=== PATIENT | female | born 1955 | race Caucasian/White ===

== ENCOUNTER 2017-08-13 09:59 | Inpatient (IN) ==
[~2017-08-13 09:59] MED LIST: *HR* Propofol 500 MG/50 ML BOTTLE IVC ONE
--- NOTE | 2017-08-13 11:23 | Anesthesia Evaluation PreOp ---
Date of Encounter: 08/13/17 Time of Encounter: 11:20 - Past History Planned Operation: colonoscopy Cardiac History: HTN, Hyperlipidemia Pulmonary History: Denies Any Significant HX DIETITIAN HELPER History: Other (myofascial pain disorder) Other Medical History: Diabetes Type II (pre diabetic on no meds) Alcohol Use: rarely - Meds/Allergy Pre-op Review Medications Reviewed: Yes Allergies Reviewed: Yes Beta Blockers on Current Med List: No Anesthesia Exam - HEENT Pupil (Motor): Pupils equal Mallampati: II Denture Type: Upper: Complete Oral Opening: Greater than 3 - Cardiac Rhythm: Regular Murmur: None - Pulmonary Breath Sounds: bilateral Clear Respiratory Effort: Symmetrical Anesthesia Assess/Plan ASA Score: 2 Modified Trang Scale for Level of Consciousness: Cooperative, oriented, and tranquil Anesthetic Plan: MAC Monitoring Plan: Standard Monitors Recovery Plan: Other (Discussed GA, risks. Agreed to proceed.)
[2017-08-13] MEDS ORDERED: 0.9 % Sodium Chloride 1,000 ML IVC SCH (11:45)
[2017-08-13] MEDS ORDERED: Simethicone 40 MG/0.6 ML MLS IR ONE (11:56)
--- NOTE | 2017-08-13 11:56 | History & Physical Report ---
Date of Encounter: 08/13/17 Time of Encounter: 11:55 24 Hour HP Update - Instructions Instructions: If the History and Physical is less than 30 days old and was completed prior to A.M. admission and or procedure and has NOT been updated on calendar day of procedure please complete this update prior to performing procedure. - Update Patient reports changes in Medical Condition: No Changes in examination, assessment, or condition: No Changes in Medication: No Surgery Remains Indicated: Yes Consent for Planned Operative Procedure(s) Verified: Yes - Pre-Operative Checklist Prophylactic Antibiotic Ordered: No Home Medications Include Beta Rehan: No Is VTE Prophylaxis Indicated?: NO
[2017-08-13] MEDS ORDERED: *HR* Metoprolol 5 MG/5 ML VIAL IVP PRN (14:37)
[2017-08-13] MEDS ORDERED: Acetaminophen 325 MG TABLET PO PRN (14:39)
--- NOTE | 2017-08-13 14:45 | General Surg History&Physical ---
<Evelyn Post - Last Filed: 08/13/17 14:42> Date of Encounter: 08/13/17 Time of Encounter: 14:30 Assessment and Plan (1) Rectal mass Current Visit: Yes Status: Acute The assessment and plan as outlined above was discussed with the patient and/or family members who expressed understanding and agreement. All questions were answered. NPO IV fluids- 75ml/hour CT scan of abdomen/pelvis with PO/IV/Rectal contrast today Check labs- CBC,CMP,PT/INR,CEA Supportive care and pain control GI prophylaxis (2) Hypertension Current Visit: Yes Status: Chronic The assessment and plan as outlined above was discussed with the patient and/or family members who expressed understanding and agreement. All questions were answered. The patient is currently normotensive Metoprolol 5 mg IV when necessary for hypertension Qualifiers: Hypertension type: essential hypertension Qualified Code(s): I10 - Essential (primary) hypertension (3) DVT prophylaxis Current Visit: Yes Status: Acute The assessment and plan as outlined above was discussed with the patient and/or family members who expressed understanding and agreement. All questions were answered. EPCDs to bilateral lower extremities for DVT prophylaxis Ambulatory hallways 3 times a day with assistance History of Present Illness Chief complaint: Rectal mass HPI: Ms. Saavedra is a 61 year old female who has been seen and evaluated by Dr. Whitmore for rectal bleeding. She reports rectal bleeding for greater than 30 days and reports severe pain with bowel movements. She reports that the pain does last for about 20 minutes after having a bowel movement. She reported that her stool has been thin and soft. She does admit to abdominal discomfort which she describes as an abdominal cramping/spasm with associated bloating. She does admit to a 22 pound weight loss since August but states that she has been using weight watchers for intentional weight loss. The patient is status post a colonoscopy today with Dr. Whitmore. The colonoscopy shows a near obstructing rectal mass. The patient has been direct admitted to the hospital for further workup and treatment. Past Med Surg Social Fam HX - Past Medical History Source: patient, old records reviewed Medical history: arthritis, hyperlipidemia, hypertension, other (Impaired fasting glucose, obesity) Psychiatric history: no psych history - Past Surgical History Surgical History: cholecystectomy, other (Tubal ligation, D&C) - Social History Smoking Status: Former smoker Alcohol use: rarely Drug use: none Current living situation: Home - Independent Activity Level: Independent ambulation - Family History Father Living Status: Age at : 86 Cause of : Colon cancer Hx Family Cancer: Yes (Colon Cancer) Mother Living Status: Age at : 63 Cause of : Breast cancer Hx Family Cancer: Yes (Breast Cancer) Medications and Allergies No Known Home Drugs 08/13/17 [History] 3 Allergy/AdvReac Type Severity Reaction Status Date / Time acetaminophen AdvReac Chest Pain Verified 08/13/17 11:55 [From Tylenol-Codeine #3] codeine AdvReac Chest Pain Verified 08/13/17 11:55 Review of Systems All systems PM: reviewed and no additional remarkable complaints except as stated (in the HPI) All systems PM: A 10-system review of systems was performed and is negative for pertinent findings except as documented above in the HPI. General Surgery Exam Initial Vital Signs Temp Pulse Resp BP Pulse Ox 98.3 F 75 18 135/88 98 08/13/17 11:26 08/13/17 11:26 08/13/17 11:26 08/13/17 11:26 08/13/17 11:26 Results - Labs All other labs normal. - Attending Attestation For this encounter, I have reviewed the SENIOR PRODUCTION PLANNER or PA documentation, treatment plan, and medical decision making; and I have had face to face time with this patient. <Hemalatha Whitmore - Last Filed: 08/14/17 15:10> Date of Encounter: 08/13/17 Assessment and Plan (1) Rectal mass Current Visit: Yes Status: Acute The assessment and plan as outlined above was discussed with the patient and/or family members who expressed understanding and agreement. All questions were answered. discussed with patient and her family results of colonoscopy, she has a nearly obstructing rectal mass CT scan done, results pending await results, likely need colostomy and mucus fistula (2) Hypertension Current Visit: Yes Status: Chronic The assessment and plan as outlined above was discussed with the patient and/or family members who expressed understanding and agreement. All questions were answered. Qualifiers: Hypertension type: essential hypertension Qualified Code(s): I10 - Essential (primary) hypertension (3) DVT prophylaxis Current Visit: Yes Status: Acute The assessment and plan as outlined above was discussed with the patient and/or family members who expressed understanding and agreement. All questions were answered. History of Present Illness HPI: Ms. Saavedra is a 61 year old female Review of Systems All systems PM: reviewed and no additional remarkable complaints except as stated All systems PM: A 10-system review of systems was performed and is negative for pertinent findings except as documented above in the HPI. General Surgery Exam Initial Vital Signs Temp Pulse Resp BP Pulse Ox 98.3 F 75 18 135/88 98 08/13/17 11:26 08/13/17 11:26 08/13/17 11:26 08/13/17 11:26 08/13/17 11:26 - General physical appearance well nourished, no distress - Eyes PERRL, normal ocular movement - ENT normal mucosa, normocephalic - Neck trachea midline - Respiratory normal expansion, normal respiratory effort, clear to auscultation - Cardiovascular Cardiovascular exam: Present: RRR - Abdomen Abdomen general surgery: Present: bowel sounds present, soft, tender Abdominal Tenderness: Present: LLQ - Integumentary Integumentary general surgery: Present: warm and dry - Neurologic Present: CN 2-12 grossly intact - Musculoskeletal Present: normal posture - Psychiatric Psychiatric general surgery: Present: A&Ox3, speech is normal Results - Labs 08/13/17 15:04 08/13/17 15:04 Abnormal lab results PT 12.4 Seconds (9.4-12.1) H 08/13/17 15:04 Chloride 110 mEq/L (98-107) H 08/13/17 15:04 Creatinine 0.59 mg/dL (0.60-1.20) L 08/13/17 15:04 Carcinoembryonic Ag 76.5 ng/mL (Less than 5.0) H 08/13/17 15:04 Diabetes panel 08/13/17 Range/Units 15:04 Sodium 139 (136-145) mEq/L Potassium 3.7 (3.5-5.1) mEq/L Chloride 110 H (98-107) mEq/L Carbon Dioxide 24 (23-29) mEq/L BUN 8 (8-23) mg/dL Creatinine 0.59 L (0.60-1.20) mg/dL Glucose 100 (70-105) mg/dL Calcium 9.2 (8.6-10.3) mg/dL AST 14 (13-39) Units/L ALT 11 (7-52) Units/L Alkaline Phosphatase 60 (34-104) Units/L Albumin 3.8 (3.5-5.7) g/dL Calcium panel 08/13/17 Range/Units 15:04 Calcium 9.2 (8.6-10.3) mg/dL Albumin 3.8 (3.5-5.7) g/dL Pituitary panel 08/13/17 Range/Units 15:04 Sodium 139 (136-145) mEq/L Potassium 3.7 (3.5-5.1) mEq/L Chloride 110 H (98-107) mEq/L Carbon Dioxide 24 (23-29) mEq/L BUN 8 (8-23) mg/dL Creatinine 0.59 L (0.60-1.20) mg/dL Glucose 100 (70-105) mg/dL Calcium 9.2 (8.6-10.3) mg/dL Adrenal panel 08/13/17 Range/Units 15:04 Sodium 139 (136-145) mEq/L Potassium 3.7 (3.5-5.1) mEq/L Chloride 110 H (98-107) mEq/L Carbon Dioxide 24 (23-29) mEq/L BUN 8 (8-23) mg/dL Creatinine 0.59 L (0.60-1.20) mg/dL Glucose 100 (70-105) mg/dL Calcium 9.2 (8.6-10.3) mg/dL Total Bilirubin 0.3 (0.3-1.0) mg/dL AST 14 (13-39) Units/L ALT 11 (7-52) Units/L Alkaline Phosphatase 60 (34-104) Units/L Albumin 3.8 (3.5-5.7) g/dL All other labs normal. - Imaging CT scan - abdomen: image reviewed CT scan - pelvis: image reviewed - Attending Attestation I have personally performed a face to face evaluation on this patient. I have reviewed and agree with the care plan. History and Exam by me shows:
[2017-08-13 15:19] LABS: Basophils # 0.1 K/mcL (0.0-0.2); Basophils % 0.7 %; Eosinophils # 0.3 K/mcL (0.0-0.6); Eosinophils % 3.3 %; Hematocrit 42.6 % (35.3-44.9); Hemoglobin 13.9 g/dL (11.5-15.4); Immature Granulocytes % 0.2 % (0-4); Lymphocytes # 2.5 K/mcL (0.6-4.6); Lymphocytes % 27.6 %; Mean Corpuscular HGB Conc 32.6 g/dL (31.6-35.5); Mean Corpuscular Hemoglobin 29.8 pg (28.0-33.3); Mean Corpuscular Volume 91.4 fL (83.0-100.0); Mean Platelet Volume 12.2 fL (9.4-12.4); Monocytes # 0.6 K/mcL (0.0-1.3); Monocytes % 6.5 %; Neutrophils # 5.5 K/mcL (1.6-8.9); Platelet Count 176 K/mcL (140-400); Red Blood Count 4.66 M/mcL (3.82-4.97); Red Cell Distribution Width 12.6 % (11.5-14.5); Segmented Neutrophils % 61.7 %
[2017-08-13 15:24] LABS: INR 1.1; Prothrombin Time 12.4 Seconds (9.4-12.1)
[2017-08-13 15:49] LABS: Carcinoembryonic Antigen 76.5 ng/mL (Less than 5.0)
[2017-08-13 15:52] LABS: Alanine Aminotransferase 11 Units/L (7-52); Albumin 3.8 g/dL (3.5-5.7); Albumin/Globulin Ratio 1.2 (1.1-2.2); Alkaline Phosphatase 60 Units/L (34-104); Aspartate Amino Transferase 14 Units/L (13-39); BUN/Creatinine Ratio 14 (6-26); Bilirubin,Total 0.3 mg/dL (0.3-1.0); Blood Urea Nitrogen 8 mg/dL (8-23); Calcium 9.2 mg/dL (8.6-10.3); Carbon Dioxide 24 mEq/L (23-29); Chloride 110 mEq/L (98-107); Globulin 3.3 g/dL (2.4-3.5); Glucose 100 mg/dL (70-105); Osmolality,Calculated 286 (280-300); Potassium 3.7 mEq/L (3.5-5.1); Sodium 139 mEq/L (136-145); Total Protein 7.1 g/dL (6.4-8.9); eGFR For African Americans > 60 (> 60); eGFR For Non-African Americans > 60 (> 60)
--- NOTE | 2017-08-13 16:50 | Anesthesia Evaluation Post Op ---
Date of Encounter: 08/13/17 Time of Encounter: 16:00 - Vital Signs Vital Signs: Selected Entries 08/13/17 15:50 Temperature 97.6 F Pulse Rate 65 Respiratory Rate 16 Blood Pressure 147/85 O2 Sat by Pulse Oximetry 97 - Lungs Lungs: Clear Ascult./Percussion - Airway Airway: Non-obstructed - Cardiovascular Regular Rate - Mental Status Mental Status: Alert & Oriented, Answers Appropriately - Nausea Vomiting Nausea Vomiting: Not Present - Hydration Hydration: Tolerates oral liquids - Discharge PostOp Status: Discharge Patient to home
[2017-08-13] MEDS: Ketorolac 15 MG/ML VIAL IVP PRN (18:21)
[2017-08-13] MEDS: Pantoprazole 40 MG VIAL IVP SCH (18:21)
[2017-08-13] MEDS: 0.9 % Sodium Chloride 1,000 ML IVC SCH (19:45)
[2017-08-14] MEDS: Ketorolac 15 MG/ML VIAL IVP PRN ×2 (03:13→16:55)
[2017-08-14] MEDS: 0.9 % Sodium Chloride 1,000 ML IVC SCH (09:33)
[2017-08-14] MEDS: Pantoprazole 40 MG VIAL IVP SCH (09:33)
--- NOTE | 2017-08-14 10:41 | General Surgery Progress Note ---
<Evelyn Post - Last Filed: 08/14/17 11:28> Date of Encounter: 08/14/17 Time of Encounter: 10:30 - Assessment and Plan (1) Rectal mass Current Visit: Yes Status: Acute Clear liquid diet NPO after midnight tonight IV fluids- 75ml/hour CT scan of abdomen/pelvis with PO/IV/Rectal contrast complete CT scan of the chest complete today CEA- 76.5 Supportive care and pain control GI prophylaxis Plan to proceed to the operating room with Dr. Whitmore in the next 24 hours for a diverting ostomy and mucous fistula (2) Hypertension Current Visit: Yes Status: Chronic Blood pressure stable Metoprolol prn for SBP greater than 150 Continue to monitor and adjust regimen as necessary Qualifiers: Hypertension type: essential hypertension Qualified Code(s): I10 - Essential (primary) hypertension (3) DVT prophylaxis Current Visit: Yes Status: Acute EPCDs to bilateral lower extremities for DVT prophylaxis Ambulate hallways TID with assistance Subjective Patient reports: no new complaints, voiding w/o difficulty, afebrile Objective Vital Signs - Last 8 Hours Temp Pulse Resp BP Pulse Ox 08/14/17 07:27 98.2 F 70 15 138/90 98 08/14/17 03:38 98.2 F 65 15 125/77 97 Intake and Output 08/13/17 08/14/17 08/14/17 23:59 07:59 15:59 Intake Total 480 / 480 200 / 200 1000 / 1000 Output Total 700 / 700 600 / 600 Balance -220 / -220 -400 / -400 1000 / 1000 Intake: IV Fluids 1000 / 1000 0.9 % Sodium Chloride 1,000 ML 1000 / 1000 @ 75 mls/hr IVC .[id number] JULIETTE Rx #:[id number] Oral 480 / 480 200 / 200 0 / 0 Output: Urine 700 / 700 600 / 600 Other: Meal NPO NPO Percent of Meal Consumed 0% # Voids 2 0 Weight 80.5 kg Patient Weight 08/14/17 23:59 Weight 80.5 kg - General physical appearance well developed, well nourished, no distress, no pain - Eyes normal ocular movement - ENT normal mucosa, atraumatic, normocephalic - Neck Neck exam: trachea midline - Respiratory normal respiratory effort, clear to auscultation - Cardiovascular Cardiovascular exam: Present: RRR - Abdomen Abdomen: Present: bowel sounds present, soft, non tender - Neurologic CN 2-12 grossly intact - Musculoskeletal normal gait, normal posture - Psychiatric oriented to time, oriented to person, oriented to place, speech is normal, memory intact - Labs 08/13/17 15:04 08/13/17 15:04 Diabetes panel 08/13/17 Range/Units 15:04 Sodium 139 (136-145) mEq/L Potassium 3.7 (3.5-5.1) mEq/L Chloride 110 H (98-107) mEq/L Carbon Dioxide 24 (23-29) mEq/L BUN 8 (8-23) mg/dL Creatinine 0.59 L (0.60-1.20) mg/dL Glucose 100 (70-105) mg/dL Calcium 9.2 (8.6-10.3) mg/dL AST 14 (13-39) Units/L ALT 11 (7-52) Units/L Alkaline Phosphatase 60 (34-104) Units/L Albumin 3.8 (3.5-5.7) g/dL Calcium panel 08/13/17 Range/Units 15:04 Calcium 9.2 (8.6-10.3) mg/dL Albumin 3.8 (3.5-5.7) g/dL Pituitary panel 08/13/17 Range/Units 15:04 Sodium 139 (136-145) mEq/L Potassium 3.7 (3.5-5.1) mEq/L Chloride 110 H (98-107) mEq/L Carbon Dioxide 24 (23-29) mEq/L BUN 8 (8-23) mg/dL Creatinine 0.59 L (0.60-1.20) mg/dL Glucose 100 (70-105) mg/dL Calcium 9.2 (8.6-10.3) mg/dL Adrenal panel 08/13/17 Range/Units 15:04 Sodium 139 (136-145) mEq/L Potassium 3.7 (3.5-5.1) mEq/L Chloride 110 H (98-107) mEq/L Carbon Dioxide 24 (23-29) mEq/L BUN 8 (8-23) mg/dL Creatinine 0.59 L (0.60-1.20) mg/dL Glucose 100 (70-105) mg/dL Calcium 9.2 (8.6-10.3) mg/dL Total Bilirubin 0.3 (0.3-1.0) mg/dL AST 14 (13-39) Units/L ALT 11 (7-52) Units/L Alkaline Phosphatase 60 (34-104) Units/L Albumin 3.8 (3.5-5.7) g/dL - Attending Attestation For this encounter, I have reviewed the ENGINEERING ADMINISTRATOR or PA documentation, treatment plan, and medical decision making; and I have had face to face time with this patient. <Hemalatha Whitmore - Last Filed: 08/14/17 15:12> Date of Encounter: 08/14/17 - Assessment and Plan (1) Rectal mass Current Visit: Yes Status: Acute CT results from chest, abd/pelvis discussed with patient and her family will plan laparoscopic colostomy with mucus fistula in the next 24 hrs clears today npo at midnight gi/dvt prophylaxis (2) Hypertension Current Visit: Yes Status: Chronic Qualifiers: Hypertension type: essential hypertension Qualified Code(s): I10 - Essential (primary) hypertension (3) DVT prophylaxis Current Visit: Yes Status: Acute Subjective Patient reports: tolerating liquids well, voiding w/o difficulty, flatus, no bowel movement, afebrile Objective Vital Signs - Last 8 Hours Temp Pulse Resp BP Pulse Ox 08/14/17 10:34 97.8 F 63 16 144/67 97 08/14/17 07:27 98.2 F 70 15 138/90 98 Intake and Output 08/13/17 08/14/17 08/14/17 23:59 07:59 15:59 Intake Total 480 / 480 200 / 200 1000 / 1000 Output Total 700 / 700 600 / 600 300 / 300 Balance -220 / -220 -400 / -400 700 / 700 Intake: IV Fluids 1000 / 1000 0.9 % Sodium Chloride 1,000 ML 1000 / 1000 @ 75 mls/hr IVC .[id number] JULIETTE Rx #:[id number] Oral 480 / 480 200 / 200 0 / 0 Output: Urine 700 / 700 600 / 600 300 / 300 Other: Meal NPO NPO Percent of Meal Consumed 0% # Voids 2 0 Weight 80.5 kg Patient Weight 08/14/17 23:59 Weight 80.5 kg - General physical appearance well developed, well nourished, no distress, no pain - Eyes normal ocular movement - ENT normal mucosa, normocephalic - Respiratory normal respiratory effort, clear to auscultation - Cardiovascular Cardiovascular exam: Present: RRR - Abdomen Abdomen: Present: bowel sounds present, soft, non tender. Absent: distended, guarding, rebound - Integumentary no growths - Neurologic CN 2-12 grossly intact - Musculoskeletal normal gait, normal posture - Psychiatric oriented to time, oriented to person, oriented to place, speech is normal, memory intact - Labs 08/13/17 15:04 08/13/17 15:04 Diabetes panel 08/13/17 Range/Units 15:04 Sodium 139 (136-145) mEq/L Potassium 3.7 (3.5-5.1) mEq/L Chloride 110 H (98-107) mEq/L Carbon Dioxide 24 (23-29) mEq/L BUN 8 (8-23) mg/dL Creatinine 0.59 L (0.60-1.20) mg/dL Glucose 100 (70-105) mg/dL Calcium 9.2 (8.6-10.3) mg/dL AST 14 (13-39) Units/L ALT 11 (7-52) Units/L Alkaline Phosphatase 60 (34-104) Units/L Albumin 3.8 (3.5-5.7) g/dL Calcium panel 08/13/17 Range/Units 15:04 Calcium 9.2 (8.6-10.3) mg/dL Albumin 3.8 (3.5-5.7) g/dL Pituitary panel 08/13/17 Range/Units 15:04 Sodium 139 (136-145) mEq/L Potassium 3.7 (3.5-5.1) mEq/L Chloride 110 H (98-107) mEq/L Carbon Dioxide 24 (23-29) mEq/L BUN 8 (8-23) mg/dL Creatinine 0.59 L (0.60-1.20) mg/dL Glucose 100 (70-105) mg/dL Calcium 9.2 (8.6-10.3) mg/dL Adrenal panel 08/13/17 Range/Units 15:04 Sodium 139 (136-145) mEq/L Potassium 3.7 (3.5-5.1) mEq/L Chloride 110 H (98-107) mEq/L Carbon Dioxide 24 (23-29) mEq/L BUN 8 (8-23) mg/dL Creatinine 0.59 L (0.60-1.20) mg/dL Glucose 100 (70-105) mg/dL Calcium 9.2 (8.6-10.3) mg/dL Total Bilirubin 0.3 (0.3-1.0) mg/dL AST 14 (13-39) Units/L ALT 11 (7-52) Units/L Alkaline Phosphatase 60 (34-104) Units/L Albumin 3.8 (3.5-5.7) g/dL - Attending Attestation I have personally performed a face to face evaluation on this patient. I have reviewed and agree with the care plan. History and Exam by me shows:
--- NOTE | 2017-08-14 17:47 | Anesthesia Evaluation PreOp ---
Date of Encounter: 08/14/17 Time of Encounter: 18:00 - Past History Planned Operation: Robotic Assisted Lap Colostomy Cardiac History: HTN, Hyperlipidemia Pulmonary History: Denies Any Significant HX SAND MILL OPERATOR FACING SAND History: Other (Myofascial Pain) Other Medical History: Diabetes Type II (pre-diabetic no meds) Anesthesia History: No Prior Anesthetic Complications : No Test: Negative Alcohol Use: rarely Drug use: none Medications and Allergies No Known Home Drugs 08/13/17 [History] 3 Allergy/AdvReac Type Severity Reaction Status Date / Time acetaminophen AdvReac Chest Pain Verified 08/13/17 11:55 [From Tylenol-Codeine #3] codeine AdvReac Chest Pain Verified 08/13/17 11:55 - Meds/Allergy Pre-op Review Medications Reviewed: Yes Allergies Reviewed: Yes Beta Blockers on Current Med List: No Anesthesia Results - Labs 08/13/17 15:04 08/13/17 15:04 Laboratory Tests 08/13/17 08/13/17 15:04 15:04 Hgb 13.9 Hct 42.6 Plt Count 176 Sodium 139 Potassium 3.7 BUN 8 Creatinine 0.59 L Anesthesia Exam Vital Signs/O2 Sat/Glucose, Most Current Temp Pulse Resp BP Pulse Ox 08/14/17 16:13 98 F 65 15 140/62 97 Height: 5'5 Weight: 177 lbs NPO (# of Hours): MN Pain Scale: 0 - HEENT Pupil (Motor): Pupils equal, EOMI Mallampati: II Teeth: Normal Oral Opening: Greater than 3 - SAND MILL OPERATOR FACING SAND LOC: Oriented SAND MILL OPERATOR FACING SAND Motor: Normal RUE, Normal LUE, Normal RLE, Normal LLE, Normal Face SAND MILL OPERATOR FACING SAND Sensory: Normal: RUE, LUE, RLE, LLE, Face - Cardiac Rhythm: Regular Murmur: None JVD: No Carotid Bruit: No - Pulmonary Breath Sounds: bilateral Clear Respiratory Effort: Symmetrical Anesthesia Assess/Plan ASA Score: 2 Modified York Scale for Level of Consciousness: Cooperative, oriented, and tranquil Anesthetic Plan: General Monitoring Plan: Standard Monitors Recovery Plan: PACU (Discussed GA, agrees to proceed)
--- NOTE | 2017-08-14 23:46 | Emergency Department Note ---
Disposition Disposition: Home, Self-Care Condition: Good General Adult HPI - General Chief complaint: ED GI Bleed Limitations: age Nursing Notes Reviewed: Yes Vital Signs Reviewed: Yes - History of Present Illness HPI Narrative: This patient was directly admitted to Dr. Whitmore. I have never seen or evaluated this patient Pain Scale: 0 - Related Data Previous Rx's Medication Instructions Recorded Dicyclomine [Bentyl] 20 mg PO Q6H PRN #30 capsule 08/19/17 Ibuprofen 800 mg PO Q8H PRN #30 tablet 08/19/17 OxyCODONE Immed Rel [Roxicodone 5 5 mg PO Q6HR PRN 7 Days #28 tablet 08/19/17 MG] Omeprazole [PriLOSEC] 20 mg PO DAILY #30 cap 08/20/17 Ondansetron HCl [Zofran] 4 mg PO Q4H PRN #30 tablet 08/20/17 Prochlorperazine Maleate 10 mg PO Q6H PRN #30 tablet 08/20/17 [Compazine] Lidocaine/Prilocaine [Emla] 1 appl TP AD #30 gm 08/23/17 Loperamide [Imodium] 2 mg PO AD PRN #30 capsule 08/23/17 Magic Mouthwash 5 ml PO Q4H PRN #240 ml 08/23/17 Allergies Allergy/AdvReac Type Severity Reaction Status Date / Time acetaminophen AdvReac Chest Pain Verified 08/30/17 13:40 [From Tylenol-Codeine #3] codeine AdvReac Chest Pain Verified 08/30/17 13:40 Past Medical History - Past Medical History Medical history: Reports: arthritis, hyperlipidemia, hypertension, other ( Impaired fasting glucose, obesity) Surgical history: Reports: cholecystectomy, other (Tubal ligation, D&C) Psychiatric history: Reports: no psych history - Social History Smoking Status: Former smoker Alcohol use: Reports: rarely Drug use: Reports: none Course Vital Signs Temperature 98.3 F 08/13/17 11:26 Pulse Rate 75 08/13/17 11:26 Respiratory Rate 18 08/13/17 11:26 Blood Pressure 135/88 08/13/17 11:26 O2 Sat by Pulse Oximetry 98 08/13/17 11:26 Temperature 98.3 F 08/14/17 19:00 Pulse Rate 87 02/14/18 19:00 Respiratory Rate 14 08/14/17 19:00 Blood Pressure 132/73 08/14/17 19:00 O2 Sat by Pulse Oximetry 96 08/14/17 19:00 Medical Decision Making - MDM Narrative Medical decision making narrative: I never saw this patient - Lab Data Result diagrams: 08/19/17 07:41 08/19/17 07:41 Lab Results 08/13/17 08/13/17 08/13/17 Range/Units 15:04 15:04 15:04 WBC 8.9 (4.3-11.1) K/mcL RBC 4.66 (3.82-4.97) M/mcL Hgb 13.9 (11.5-15.4) g/dL Hct 42.6 (35.3-44.9) % MCV 91.4 (83.0-100.0) fL MCH 29.8 (28.0-33.3) pg MCHC 32.6 (31.6-35.5) g/dL RDW 12.6 (11.5-14.5) % Plt Count 176 (140-400) K/mcL MPV 12.2 (9.4-12.4) fL Immature Gran % 0.2 (0-4) % Seg Neutrophils % 61.7 % Lymphocytes % 27.6 % Monocytes % 6.5 % Eosinophils % 3.3 % Basophils % 0.7 % Neutrophils # 5.5 (1.6-8.9) K/mcL Lymphocytes # 2.5 (0.6-4.6) K/mcL Monocytes # 0.6 (0.0-1.3) K/mcL Eosinophils # 0.3 (0.0-0.6) K/mcL Basophils # 0.1 (0.0-0.2) K/mcL PT 12.4 H (9.4-12.1) Seconds INR 1.1 Sodium 139 (136-145) mEq/L Potassium 3.7 (3.5-5.1) mEq/L Chloride 110 H (98-107) mEq/L Carbon Dioxide 24 (23-29) mEq/L BUN 8 (8-23) mg/dL Creatinine 0.59 L (0.60-1.20) mg/dL Est GFR ( Amer) > 60 (> 60) Est GFR (Non-Af Amer) > 60 (> 60) BUN/Creatinine Ratio 14 (6-26) Glucose 100 (70-105) mg/dL Calculated Osmolality 286 (280-300) Calcium 9.2 (8.6-10.3) mg/dL Total Bilirubin 0.3 (0.3-1.0) mg/dL AST 14 (13-39) Units/L ALT 11 (7-52) Units/L Alkaline Phosphatase 60 (34-104) Units/L Serum Total Protein 7.1 (6.4-8.9) g/dL Albumin 3.8 (3.5-5.7) g/dL Globulin 3.3 (2.4-3.5) g/dL Albumin/Globulin Ratio 1.2 (1.1-2.2) Carcinoembryonic Ag 76.5 H (Less than 5.0) ng/mL Attestation Statement - Attestation Attestation: I do not know why this ER physician has created this document and assigned it to me. Patient was a direct admit and never was to go through the ER.
[2017-08-15] MEDS ORDERED: *HR* Propofol 200 MG/20 ML VIAL IVP ONE (07:12)
[2017-08-15] MEDS ORDERED: *HR* FentaNYL (PF) 100 MCG/2 ML VIAL ONE ×2 (07:12→08:30)
[2017-08-15] MEDS ORDERED: *HR* Succinylcholine 200 MG/10 ML VIAL IVP ONE (07:15)
[2017-08-15] MEDS ORDERED: *HR* Rocuronium Bromide 50 MG/5 ML VIAL ONE (07:15)
[2017-08-15] MEDS ORDERED: Lidocaine -MPF 2% 2 ML VIAL ONE (07:16)
[2017-08-15] MEDS ORDERED: *HR* HYDROmorphone 2 MG TABLET PO PRN (07:35)
[2017-08-15] MEDS ORDERED: *HR* OxyCODONE Immed Rel 5 MG TABLET PO PRN (07:35)
[2017-08-15] MEDS ORDERED: *HR* HYDROcodone/Acet 7.5/325 mg TABLET PO PRN (07:35)
[2017-08-15] MEDS ORDERED: Acetaminophen IV 1,000 MG/100 ML INFUS..BTL ONE (07:38)
[2017-08-15] MEDS ORDERED: Ketamine *HR* 500 MG/10 ML MDV ONE (07:40)
[2017-08-15] MEDS ORDERED: *HR* Magnesium Sulfate 1 GM/2 ML VIAL ONE (08:12)
[2017-08-15] MEDS ORDERED: Dexamethasone 4 MG/ML VIAL ONE (08:21)
[2017-08-15] MEDS ORDERED: Ondansetron 4 MG/2 ML VIAL ONE (08:21)
[2017-08-15] MEDS ORDERED: *HR* Midazolam HCl 2 MG/2 ML VIAL ONE (08:23)
[2017-08-15] MEDS ORDERED: Ringers Solution, Lactated 1,000 ML ONE (10:10)
--- NOTE | 2017-08-15 10:12 | Operative Note ---
Date of procedure: 08/15/17 Pre-op diagnosis: Near obstructing rectal mass Post-op diagnosis: same Procedure: Laparoscopic sigmoid colostomy with mucus fistula Complications: none immediate Anesthesia: GETA, local Local Anesthetics: 0.5% Sensorcaine HCL SubQ (cc) (30) Surgeon: Hemalatha Whitmore Was there an occupational therapist assistant present: Yes Care Coordination Manager: Caty Light Estimated blood loss (cc): 10 Specimen: none Condition: stable Disposition: PACU Procedure in Detail: Patient was brought to the operating suite and placed on the operating table. Sign-in was performed and everyone was in agreement. Anesthesia was induced and patient was endotracheally intubated by anesthesia without incident. Bilateral arms were tucked. Her abdomen was prepped and draped in the usual sterile fashion. Timeout was performed again everyone was in agreement. A stab incision in the left upper quadrant was made with 11 blade. A Veress needle was placed through this and water drop test confirmed placement and the abdomen was insufflated. We entered the abdomen a 5 mm 0 degree laparoscope and a 5 mm XL trocar in the right upper quadrant. The area under entry was visualized and was normal. There was no bowel injury and there was no bleeding. Another 5 mm port was placed in the right lower quadrant under direct visualization after first incising the skin with 11 blade. A third 5 mm port was placed in the right abdominal wall several centimeters lateral to the umbilicus under direct visualization after first incising the skin with 11 blade. The patient was placed in right side down Trendelenburg position. Small bowel was manipulated right abdomen. There were omental adhesions to the anterior abdominal wall from the patient's previous open cholecystectomy which were taken down with gentle blunt dissection and heated scissors. The sigmoid colon and the left colon located. Using laparoscopic scissors and gentle blunt dissection the sigmoid was taken down off the left abdominal wall white line of Toldt. We then turned our attention to creating the ostomy opening. A circular incision through the skin and the subcutaneous tissues with the patient's previously marked colostomy site was made with 15 blade. The skin and subcutaneous fat was excised with a Bovie. Dissected through the subcutaneous fat to the rectus anterior fascia which was opened longitudinally with the Bovie. The rectus muscle was split with a Andressa. The posterior rectus fascia was opened with the Bovie. The ostomy opening accommodated 2 fingerbreadths. The sigmoid colon was then grasped with Dexter through the ostomy opening. There was not enough length of the colon to reach appropriately. The sigmoid was returned to the abdominal cavity. An extra small Marcial wound retractor was placed through the colostomy opening turned several times to create a stoma 4 x 4 wet gauze was placed around the tract to hold it in place. The abdomen was insufflated again. A fourth 5 mm port was placed in the left lower quadrant under direct visualization after first incising the skin with complete. There were adhesions from the sigmoid to the fallopian tube which were taken down with gentle blunt dissection and scissors. Further mobilization of the left sigmoid colon off the lateral abdominal wall were done with gentle blunt dissection. A laparoscopic Dexter was placed on the sigmoid colon. The Marcial wound retractor was removed from the abdominal wall. Using a Dexter through the ostomy opening the sigmoid colon was crossed and pulled through the ostomy opening. There was adequate length. An opening in the mesentery beneath the sigmoid was made with the Bovie. The sigmoid colon and then transected with a linear DEBBIE-75 stapler using a blue load. A corner of the distal sigmoid was excised with heavy curved scissors. The inferior aspect of the mucous fistula was secured with 3-0 Vicryl interrupted stitches full-thickness through the colon wall to the subcuticular tissue. Babcocks were placed along the suture line and the suture line transected with heavy curved scissors. The colostomy was then created using 3-0 Vicryl full-thickness colon interrupted stitches secured to the subcuticular skin of the ostomy opening. The superior aspect of the mucous fistula was secured to the inferior aspect of the colostomy with 3-0 Vicryl interrupted full-thickness colon wall stitches. The skin at the 4, 5 mm trocar sites were closed with 4-0 Monocryl interrupted stitches. A colostomy appliance was placed over the colostomy and mucous fistula. All lap and instrument counts are correct at the case. The patient tolerated the procedure well. She was awoken by anesthesia and extubated in the OR. She was taken to PACU in stable condition.
[2017-08-15] MEDS: MORPHINE SUL Oral CONC 10 MG/0.5 ML ORAL.SYG SL PRN ×2 (10:19→10:28)
--- NOTE | 2017-08-15 10:45 | Anesthesia Evaluation Post Op ---
Date of Encounter: 08/15/17 Time of Encounter: 10:44 - Vital Signs Vital Signs: Vital Signs/O2 Sat/Glucose, Most Recent Temp Pulse Resp BP Pulse Ox 97.3 F L 81 20 142/77 99 08/15/17 10:05 08/15/17 10:05 08/15/17 10:05 08/15/17 10:05 08/15/17 10:05 Blood Glucose* 98 - Lungs Lungs: Clear Ascult./Percussion - Airway Airway: Non-obstructed - Cardiovascular Regular Rate - Mental Status Mental Status: Alert & Oriented, Answers Appropriately - Pain Pain Scale: 0 Pain Scale used: Numeric (1 - 10) - Nausea Vomiting Nausea Vomiting: Not Present - Hydration Hydration: Tolerates oral liquids, Ice chips, Able to void Notes: 08/15/17 10:45 AAOx3, VSS with no complaints - Discharge PostOp Status: Transfer Patient to floor
[2017-08-15] MEDS: OXYCODONE Oral CONC 10 MG/0.5 ML ORAL.SYG SL PRN ×2 (13:38→18:19)
[2017-08-15] MEDS: Ondansetron 4 MG/2 ML VIAL IVP PRN ×2 (13:42→16:25)
--- NOTE | 2017-08-15 14:24 | Oncology Inp Consult Note ---
<Comfort Cavazos S - Last Filed: 08/15/17 18:56> Date of Encounter: 08/15/17 - Data of Consult Requesting Physician: Hemalatha Whitmore MD Primary Care Provider: PCP NONE - Consult Narrative History of present illness: Ms. Saavedra is a 61 year old female Medications and Allergies Ibuprofen 800 mg PO Q8H PRN #30 tablet 08/19/17 [Rx] OxyCODONE Immed Rel [Roxicodone 5 MG] 5 mg PO Q6HR PRN 7 Days #28 tablet [Rx] 3 Allergy/AdvReac Type Severity Reaction Status Date / Time acetaminophen AdvReac Chest Pain Verified 08/13/17 11:55 [From Tylenol-Codeine #3] codeine AdvReac Chest Pain Verified 08/13/17 11:55 Oncology - Exam - Constitutional Vitals: Temp Pulse Resp BP Pulse Ox 98.1 F 84 14 121/73 94 08/15/17 14:51 08/15/17 14:51 08/15/17 14:51 08/15/17 14:51 08/15/17 14:51 Consult Discharge Plan - Plan Referrals: NONE,PCP [Non-Partnered Physician] - Prescriptions: OxyCODONE Immed Rel [Roxicodone 5 MG] 5 mg PO Q6HR PRN 7 Days #28 tablet PRN Reason: Pain rated 4-10 Ibuprofen 800 mg PO Q8H PRN #30 tablet PRN Reason: Pain - Attending Attestation 1. Stage III rectal cancer. She is fairly asymptomatic before 2016. She then developed pain and some rectal bleeding. Colonoscopy Showed obstructing rectal mass about 8 cm from annual verge end colostomy done by Dr. Aguilar Pathology showed adenocarcinoma with signet rings cells which is an aggressive future Imaging CT chest abdomen and pelvis with IV contrast 08/13/2017 showed pelvic lymphadenopathy consistent with a N1 lesion. Liver spleen and other organs unremarkable. CT chest showed about 5 mm calcified right lung nodule possibly granuloma Preoperative CEA elevated at 76 on 08/13/2017 there are no anemia Treatment recommendation Neoadjuvant concurrent chemoradiation with Xeloda Her creatinine normal at 0.6 Xeloda 1500 mg by mouth twice a day Saturday through Saturday through her course of radiation which will be about 6 weeks. We will make outpatient appointment with medical oncology and radiation oncology next week. Complications of Xeloda addressed including hand-foot syndrome diarrhea and occasional mucositis. No major hair loss. 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 Dr. Cavazos will round with patient and family later today to discuss treatment options per NCCN guidelines and AJCC staging. Pre-operative CEA 76 on 08/13/17. I will arrange for follow up with medical oncology and radiation oncology follow ups next week. She will have further staging scans arranged following this. She was given a printout on Xeloda along with verbal education provided. All questions were answered to the best of my ability. Please refer to Dr. Cavazos's attestation for further details. - Data of Consult Patient: new to practice Consult date: 08/15/17 Requesting Physician: Hemalatha Whitmore MD Primary Care Provider: PCP NONE - Consult Narrative Reason for consult: rectal signet cell adenocarcinoma History of present illness: Ms. Saavedra is a 61 year old female with past medical history significant for hypertension, prediabetes, obesity, borderline hyperlipidemia, allergic rhinitis. Patient consulted with Dr. Whitmore on 07/25/2017 with multiple GI complaints that began around May 2017. She began having lower abdominal cramps and steady pelvic pain which would occur all day. She went to her primary care physician who ordered lab work and a CT scan of the abdomen and pelvis. CT scan the abdomen and pelvis did reveal rectosigmoid wall thickening and perisigmoid inflammatory changes suggestive of colitis along with multiple enlarged lymph nodes within the deep pelvis between the sigmoid colon and uterus which were believed to be reactive in nature. At this time she was started on Flagyl and Levaquin which she took for about 20 days with some improvement but not complete resolution of her symptoms. She also experienced rectal bleeding which was usually passed before stools and noted on her stool. She also reported perianal pain that is sharp in nature and occurs when she is having a bowel movement and lasts up to 20 minutes after a bowel movement. She denies nausea vomiting or constipation. She had colonoscopy on 08/13/2017, digital rectal exam revealed a rectal mass palpated 8-9 cm from the anal verge, the mass was circumferential and nearly obstructing, unable to pass scope; an area in the rectum just proximal to the mass was injected with 4 mL in using for tattooing, 8 sessile polyps were removed. Preoperative CEA was 76.5. She underwent laparoscopic sigmoid colostomy with mucus fistula on 08/15/17. Imaging Abdomen/pelvis CT 08/13/17 shows 5 cm apple core type rectal mass involving the mid rectum with mural wall thickening extending toward the rectosigmoid junction and also inferiorly into the lower rectum region about 4 cm proximal to the anus with accompanying numerous perirectal pelvic lymph nodes and some adenopathy along the iliac vessels including a dominant 12 mm left common iliac artery noted. 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 CT chest on 08/14/2017 shows calcified 5 mm left lower lobe nodule. No evidence of metastatic disease. Pathology 08/13/2017 Specimen A: Rectum, endoscopic biopsy: Invasive moderately to poorly differentiated adenocarcinoma with signet ring cells consistent with component of signet ring cell adenocarcinoma.. (see comment) Specimen B: Rectum, endoscopic biopsy: Pieces of hyperplastic polyp. Specimen C: Tissue from anal verge, endoscopic biopsy: Colonic mucosa with no definitive diagnostic pathologic change. She has lost about 22 pounds since August which she reports as being intentional from weight watchers. She is a former smoker and started smoking around the year 1969 and quit in 1992. She drinks occasionally not on a regular basis. Her father with colon cancer at the age of 86. Her mother at age 63 from breast cancer. Past Med Surg Social Fam HX - Past Medical History Medical history: arthritis, hyperlipidemia, hypertension, other (Impaired fasting glucose, obesity) Psychiatric history: no psych history - Past Surgical History Surgical History: cholecystectomy, other (Tubal ligation, D&C) - Social History Smoking Status: Former smoker Alcohol use: rarely Drug use: none - Family History Father Living Status: Age at : 86 Cause of : Colon cancer Hx Family Cancer: Yes (Colon Cancer) Mother Living Status: Age at : 63 Cause of : Breast cancer Hx Family Cancer: Yes (Breast Cancer) Constitutional: Present: as per HPI, anorexia, fatigue, weight loss. Absent: fever(s) Eyes: Absent: change in vision Cardiovascular: Absent: chest pain, irregular heart rhythm, palpitations Respiratory: Absent: cough, hemoptysis Gastrointestinal: Present: as per HPI Genitourinary: Absent: dysuria Musculoskeletal: Absent: numbness, tingling Integumentary: Present: as per HPI Neurological: Absent: focal weakness, tremor(s) Hematologic/Lymphatic: Absent: lymphadenopathy Oncology - Exam - Constitutional Vitals: Temp Pulse Resp BP Pulse Ox 97.4 F L 75 16 128/75 94 08/15/17 11:31 08/15/17 11:31 08/15/17 11:31 08/15/17 11:08/15/17 10:45 General appearance: cooperative, no acute distress, no febrile - Head Head exam: Present: atraumatic - ENT ENT exam: Present: mucous membranes moist - Respiratory Respiratory exam: Present: CTAB. Absent: respiratory distress - Cardiovascular Cardiovascular exam: Present: RRR, +S1, +S2 - GI/Abdominal GI/Abdominal exam: Present: normal bowel sounds, soft Additional comments: post op tenderness as expected, ostomy viable and functioning - Extremities Exam Extremities exam: Present: normal inspection. Absent: calf tenderness, pedal edema - Neurological Exam Neurological exam: Present: alert, oriented X3, no focal deficits, strengths equal and symetr throughout - Psychiatric Psychiatric exam: Present: normal affect, normal mood - Skin Skin exam: Present: normal color, warm
[2017-08-15] MEDS ORDERED: OXYCODONE Oral CONC 10 MG/0.5 ML ORAL.SYG SL PRN (19:18)
[2017-08-15] MEDS ORDERED: *HR* Metoprolol 5 MG/5 ML VIAL IVP PRN (19:18)
[2017-08-15] MEDS ORDERED: Ondansetron 4 MG/2 ML VIAL IVP PRN (19:18)
[2017-08-15] MEDS: *HR* Heparin 5,000 UNIT/ML VIAL SQ SCH (20:12)
[2017-08-15] MEDS: 0.9 % Sodium Chloride 1,000 ML IVC SCH ×2 (20:12→22:51)
[2017-08-15] MEDS: Pantoprazole 40 MG VIAL IVP SCH (22:51)
[2017-08-16] MEDS: Ketorolac 15 MG/ML VIAL IVP PRN ×4 (03:39→22:11)
[2017-08-16] MEDS: 0.9 % Sodium Chloride 1,000 ML IVC SCH (03:42)
[2017-08-16] MEDS: *HR* Heparin 5,000 UNIT/ML VIAL SQ SCH ×2 (05:39→18:00)
[2017-08-16 06:49] LABS: Basophils % 0.4 %; Eosinophils % 0.4 %; Hematocrit 36.5 % (35.3-44.9); Immature Granulocytes % 0.3 % (0-4); Lymphocytes # 1.9 K/mcL (0.6-4.6); Lymphocytes % 16.5 %; Mean Corpuscular HGB Conc 33.2 g/dL (31.6-35.5); Mean Corpuscular Volume 90.6 fL (83.0-100.0); Mean Platelet Volume 12.1 fL (9.4-12.4); Monocytes # 0.9 K/mcL (0.0-1.3); Monocytes % 8.2 %; Neutrophils # 8.5 K/mcL (1.6-8.9); Platelet Count 138 K/mcL (140-400); Red Blood Count 4.03 M/mcL (3.82-4.97); Red Cell Distribution Width 12.6 % (11.5-14.5); Segmented Neutrophils % 74.2 %
[2017-08-16 06:52] LABS: Hemoglobin 12.1 g/dL (11.5-15.4)
[2017-08-16 07:04] LABS: BUN/Creatinine Ratio 14 (6-26); Blood Urea Nitrogen 10 mg/dL (8-23); Calcium 8.8 mg/dL (8.6-10.3); Carbon Dioxide 25 mEq/L (23-29); Chloride 107 mEq/L (98-107); Glucose 103 mg/dL (70-105); Osmolality,Calculated 285 (280-300); Potassium 3.8 mEq/L (3.5-5.1); Sodium 138 mEq/L (136-145); eGFR For African Americans > 60 (> 60); eGFR For Non-African Americans > 60 (> 60)
[2017-08-16] MEDS ORDERED: Pantoprazole 40 MG VIAL IVP SCH (09:00)
--- NOTE | 2017-08-16 09:36 | General Surgery Progress Note ---
<Evelyn Post Nay - Last Filed: 08/16/17 09:51> Date of Encounter: 08/16/17 Time of Encounter: 09:35 - Assessment and Plan (1) Rectal mass Current Visit: Yes Status: Acute POD #1 Laparoscopic sigmoid colostomy with mucus fistula with Dr. Whitmore Pathology reviewed with the patient per Dr. Whitmore and Oncology Advance to regular diet today Saline lock IV fluids CEA- 76.5 Supportive care and pain control GI prophylaxis Wound care consult for new colostomy special services agent consult for discharge needs Ambulate hallways TID with assistance Incentive Spirometer every 1 hour while awake DVT prophylaxis (2) Rectal cancer Current Visit: Yes Status: Acute Invasive moderately to poorly differentiated adenocarcinoma with signet ring cells consistent with component of signet ring cell adenocarcinoma Oncology consulted for recommendations (3) Hypertension Current Visit: Yes Status: Chronic Blood pressure stable Metoprolol prn for SBP greater than 150 Continue to monitor and adjust regimen as necessary Qualifiers: Hypertension type: essential hypertension Qualified Code(s): I10 - Essential (primary) hypertension (4) DVT prophylaxis Current Visit: Yes Status: Acute Heparin 5000 units subcutaneous twice daily for DVT prophylaxis EPCDs to bilateral lower extremities for DVT prophylaxis Ambulate hallways TID with assistance Subjective Patient reports: no new complaints, feels better, still having pain (post- operative), pain is less, tolerating a regular diet, voiding w/o difficulty, flatus, no bowel movement, afebrile, other (ambulated in the hallways this morning) Objective Vital Signs - Last 8 Hours Temp Pulse Resp BP Pulse Ox 08/16/17 06:39 97.7 F 66 18 127/63 98 08/16/17 03:24 98.0 F 69 14 142/72 96 Intake and Output 08/15/17 08/16/17 08/16/17 23:59 07:59 15:59 Intake Total 0 / 0 1000 / 1000 Output Total 150 / 150 0 / 0 Balance -150 / -150 1000 / 1000 Intake: IV Fluids 1000 / 1000 0.9 % Sodium Chloride 1,000 ML 1000 / 1000 @ 75 mls/hr IVC .[id number] JULIETTE Rx #:[id number] Oral 0 / 0 0 / 0 Output: Urine 150 / 150 0 / 0 Other: # Voids 1 1 Weight 80.694 kg Patient Weight 02/16/18 23:59 Weight 80.694 kg - General physical appearance well developed, well nourished, no distress - Eyes normal ocular movement - ENT normal mucosa, atraumatic, normocephalic - Neck Neck exam: trachea midline - Respiratory normal expansion, normal respiratory effort, clear to auscultation - Cardiovascular Cardiovascular exam: Present: RRR - Abdomen Abdomen: Present: bowel sounds present, soft, tender (expected post-operative tenderness), wound (colostomy mostly pink with small amount of congestion on bottom edge (superficial), positive flatus) - Incision Incision: Present: clean and dry, intact - Integumentary no rash, no growths, no abnormal pigmentation - Neurologic CN 2-12 grossly intact - Musculoskeletal normal gait, normal posture - Psychiatric oriented to time, oriented to person, oriented to place, speech is normal, memory intact - Labs 08/16/17 06:36 08/16/17 06:36 Diabetes panel 08/16/17 Range/Units 06:36 Sodium 138 (136-145) mEq/L Potassium 3.8 (3.5-5.1) mEq/L Chloride 107 (98-107) mEq/L Carbon Dioxide 25 (23-29) mEq/L BUN 10 (8-23) mg/dL Creatinine 0.69 (0.60-1.20) mg/dL Glucose 103 (70-105) mg/dL Calcium 8.8 (8.6-10.3) mg/dL Calcium panel 08/16/17 Range/Units 06:36 Calcium 8.8 (8.6-10.3) mg/dL Pituitary panel 08/16/17 Range/Units 06:36 Sodium 138 (136-145) mEq/L Potassium 3.8 (3.5-5.1) mEq/L Chloride 107 (98-107) mEq/L Carbon Dioxide 25 (23-29) mEq/L BUN 10 (8-23) mg/dL Creatinine 0.69 (0.60-1.20) mg/dL Glucose 103 (70-105) mg/dL Calcium 8.8 (8.6-10.3) mg/dL Adrenal panel 08/16/17 Range/Units 06:36 Sodium 138 (136-145) mEq/L Potassium 3.8 (3.5-5.1) mEq/L Chloride 107 (98-107) mEq/L Carbon Dioxide 25 (23-29) mEq/L BUN 10 (8-23) mg/dL Creatinine 0.69 (0.60-1.20) mg/dL Glucose 103 (70-105) mg/dL Calcium 8.8 (8.6-10.3) mg/dL - VTE Documentation of Mechanical Device: Intermittent pneumatic compression device Consult Discharge Plan - Plan Referrals: NONE,PCP [Non-Partnered Physician] - - Attending Attestation For this encounter, I have reviewed the [employer]OOKER or PA documentation, treatment plan, and medical decision making; and I have had face to face time with this patient. <Hemalatha Whitmore - Last Filed: 08/16/17 13:03> Date of Encounter: 08/16/17 - Assessment and Plan (1) Rectal mass Current Visit: Yes Status: Acute (2) Hypertension Current Visit: Yes Status: Chronic Qualifiers: Hypertension type: essential hypertension Qualified Code(s): I10 - Essential (primary) hypertension (3) DVT prophylaxis Current Visit: Yes Status: Acute (4) Rectal cancer Current Visit: Yes Status: Acute appreciate oncology recommendations. pod 1 laparoscopic colostomy and mucus fistula inferior aspect of colostomy is dusky but test tube evaluation reveals pink mucosa continue regular diet prn pain control gi/dvt prophylaxis OOB to chair colostomy teaching pending ok to shower aggressive pulmonary toilet, pt up to 1999 on IS Subjective Patient reports: feels better, still having pain, pain is less, tolerating a regular diet, voiding w/o difficulty, flatus, no bowel movement, afebrile Objective Vital Signs - Last 8 Hours Temp Pulse Resp BP Pulse Ox 08/16/17 10:06 98.6 F 63 18 121/70 96 08/16/17 06:39 97.7 F 66 18 127/63 98 Intake and Output 08/15/17 08/16/17 08/16/17 23:59 07:59 15:59 Intake Total 0 / 0 1000 / 1000 420 / 420 Output Total 150 / 150 0 / 0 0 / 0 Balance -150 / -150 1000 / 1000 420 / 420 Intake: IV Fluids 1000 / 1000 0.9 % Sodium Chloride 1,000 ML 1000 / 1000 @ 75 mls/hr IVC .[id number] JULIETTE Rx #:[id number] Oral 0 / 0 0 / 0 420 / 420 Output: Urine 150 / 150 0 / 0 0 / 0 Other: Percent of Meal Consumed 100% # Voids 1 1 Weight 80.694 kg Patient Weight 08/16/17 23:59 Weight 80.694 kg - General physical appearance well developed, well nourished, no distress - Eyes PERRL, normal ocular movement - ENT normal mucosa, normocephalic - Respiratory normal expansion, normal respiratory effort - Cardiovascular Cardiovascular exam: Present: RRR - Abdomen Abdomen: Present: bowel sounds present, soft, tender, wound - Incision Incision: Present: clean and dry, intact - Integumentary no rash, no growths, no abnormal pigmentation - Neurologic CN 2-12 grossly intact - Musculoskeletal normal posture - Psychiatric oriented to time, oriented to person, speech is normal, memory intact - Labs 08/16/17 06:36 08/16/17 06:36 Diabetes panel 08/16/17 Range/Units 06:36 Sodium 138 (136-145) mEq/L Potassium 3.8 (3.5-5.1) mEq/L Chloride 107 (98-107) mEq/L Carbon Dioxide 25 (23-29) mEq/L BUN 10 (8-23) mg/dL Creatinine 0.69 (0.60-1.20) mg/dL Glucose 103 (70-105) mg/dL Calcium 8.8 (8.6-10.3) mg/dL Calcium panel 08/16/17 Range/Units 06:36 Calcium 8.8 (8.6-10.3) mg/dL Pituitary panel 08/16/17 Range/Units 06:36 Sodium 138 (136-145) mEq/L Potassium 3.8 (3.5-5.1) mEq/L Chloride 107 (98-107) mEq/L Carbon Dioxide 25 (23-29) mEq/L BUN 10 (8-23) mg/dL Creatinine 0.69 (0.60-1.20) mg/dL Glucose 103 (70-105) mg/dL Calcium 8.8 (8.6-10.3) mg/dL Adrenal panel 08/16/17 Range/Units 06:36 Sodium 138 (136-145) mEq/L Potassium 3.8 (3.5-5.1) mEq/L Chloride 107 (98-107) mEq/L Carbon Dioxide 25 (23-29) mEq/L BUN 10 (8-23) mg/dL Creatinine 0.69 (0.60-1.20) mg/dL Glucose 103 (70-105) mg/dL Calcium 8.8 (8.6-10.3) mg/dL - Attending Attestation I have personally performed a face to face evaluation on this patient. I have reviewed and agree with the care plan. History and Exam by me shows:
[2017-08-17] MEDS: Ketorolac 15 MG/ML VIAL IVP PRN ×4 (04:19→22:47)
[2017-08-17 05:56] LABS: Basophils % 0.3 %; Eosinophils # 0.3 K/mcL (0.0-0.6); Eosinophils % 2.8 %; Hematocrit 34.5 % (35.3-44.9); Hemoglobin 11.3 g/dL (11.5-15.4); Immature Granulocytes % 0.3 % (0-4); Lymphocytes # 1.8 K/mcL (0.6-4.6); Mean Corpuscular HGB Conc 32.8 g/dL (31.6-35.5); Mean Corpuscular Hemoglobin 29.7 pg (28.0-33.3); Mean Corpuscular Volume 90.6 fL (83.0-100.0); Mean Platelet Volume 12.3 fL (9.4-12.4); Monocytes # 0.7 K/mcL (0.0-1.3); Monocytes % 7.6 %; Neutrophils # 6.1 K/mcL (1.6-8.9); Platelet Count 143 K/mcL (140-400); Red Blood Count 3.81 M/mcL (3.82-4.97); Red Cell Distribution Width 12.7 % (11.5-14.5)
[2017-08-17] MEDS: *HR* Heparin 5,000 UNIT/ML VIAL SQ SCH ×2 (06:13→18:11)
--- NOTE | 2017-08-17 14:53 | General Surgery Progress Note ---
Date of Encounter: 08/17/17 Time of Encounter: 14:51 - Assessment and Plan (1) Rectal mass Current Visit: Yes Status: Acute POD#1 s/p lap colostomy formation; pain controlled; OOBTC; tolerating diet; ostomy functioning; cont with diet activity as tolerated ostomy nurses for education Subjective Patient reports: no new complaints, feels better, pain is less, tolerating a regular diet, afebrile Objective Vital Signs - Last 8 Hours Temp Pulse Resp BP Pulse Ox 08/17/17 11:00 98.3 F 93 16 130/77 97 Intake and Output 08/16/17 08/17/17 08/17/17 23:59 07:59 15:59 Intake Total 0 / 0 0 / 0 960 / 960 Output Total 0 / 0 300 / 300 Balance 0 / 0 0 / 0 660 / 660 Intake: Oral 0 / 0 0 / 0 960 / 960 Output: Urine 0 / 0 300 / 300 Other: Meal Lunch Percent of Meal Consumed 95% Stool Size Moderate Moderate Stool Consistency liquid liquid Stool Characteristics Normal for Patient Mucoid Stool Color Brown Brown # Voids 1 1 - General physical appearance no distress - ENT normocephalic - Neck Neck exam: no lymphadectomy - Respiratory normal expansion, normal respiratory effort - Cardiovascular Cardiovascular exam: Present: RRR - Abdomen Abdomen: Present: soft, tender (appropriately tender) Additional Comments: ostomy functioning; - Incision Incision: Present: clean and dry, intact - Integumentary no rash - Neurologic CN 2-12 grossly intact - Psychiatric oriented to time, oriented to person, oriented to place - Labs 08/17/17 05:06 08/16/17 06:36 - VTE Documentation of Mechanical Device: Intermittent pneumatic compression device Consult Discharge Plan - Plan Referrals: NONE,PCP [Non-Partnered Physician] -
[2017-08-18] MEDS: Ketorolac 15 MG/ML VIAL IVP PRN (04:34)
[2017-08-18] MEDS: *HR* Heparin 5,000 UNIT/ML VIAL SQ SCH ×2 (06:25→17:24)
--- NOTE | 2017-08-18 12:31 | General Surgery Progress Note ---
Date of Encounter: 08/18/17 Time of Encounter: 12:29 - Assessment and Plan (1) Rectal mass Current Visit: Yes Status: Acute s/p lap colostomy formation; pain controlled; OOBTC; tolerating diet; ostomy functioning; cont with diet activity as tolerated ostomy nurses for education Subjective Patient reports: no new complaints, tolerating a regular diet, bowel movement, afebrile Objective Vital Signs - Last 8 Hours Temp Pulse Resp BP Pulse Ox 08/18/17 10:40 98.2 F 68 14 145/82 95 08/18/17 05:42 98.5 F 67 15 150/77 97 Intake and Output 08/17/17 08/18/17 08/18/17 23:59 07:59 15:59 Intake Total 240 / 240 0 / 0 240 / 240 Output Total 1400 / 1400 1825 / 1825 0 / 0 Balance -1160 / -1160 -1825 / -1825 240 / 240 Intake: Oral 240 / 240 0 / 0 240 / 240 Output: Urine 1400 / 1400 1825 / 1825 0 / 0 Stool 0 / 0 Other: Meal Dinner Breakfast Percent of Meal Consumed 100% 100% Stool Size Small Stool Consistency loose Stool Color Brown # Bowel Movements 1 - General physical appearance no distress - ENT normocephalic - Respiratory normal expansion, normal respiratory effort - Cardiovascular Cardiovascular exam: Present: RRR - Abdomen Abdomen: Present: soft, tender (appropriatley tender; ostomy is viable and functioning) - Neurologic CN 2-12 grossly intact - Psychiatric oriented to time, oriented to person, oriented to place - Labs 08/17/17 05:06 08/16/17 06:36 - VTE Documentation of Mechanical Device: Intermittent pneumatic compression device Consult Discharge Plan - Plan Referrals: NONE,PCP [Non-Partnered Physician] -
[2017-08-18] MEDS ORDERED: Ketorolac 15 MG/ML VIAL IVP PRN (17:12)
[2017-08-19] MEDS: *HR* Heparin 5,000 UNIT/ML VIAL SQ SCH (05:28)
[2017-08-19 08:15] LABS: BUN/Creatinine Ratio 20 (6-26); Blood Urea Nitrogen 12 mg/dL (8-23); Calcium 9.1 mg/dL (8.6-10.3); Carbon Dioxide 26 mEq/L (23-29); Chloride 107 mEq/L (98-107); Glucose 108 mg/dL (70-105); Osmolality,Calculated 288 (280-300); Potassium 3.7 mEq/L (3.5-5.1); Sodium 139 mEq/L (136-145); eGFR For African Americans > 60 (> 60); eGFR For Non-African Americans > 60 (> 60)
[2017-08-19 08:26] LABS: Basophils # 0.1 K/mcL (0.0-0.2); Basophils % 0.6 %; Eosinophils # 0.5 K/mcL (0.0-0.6); Eosinophils % 5.8 %; Hemoglobin 12.5 g/dL (11.5-15.4); Immature Granulocytes % 0.4 % (0-4); Lymphocytes # 1.6 K/mcL (0.6-4.6); Lymphocytes % 18.4 %; Mean Corpuscular HGB Conc 32.9 g/dL (31.6-35.5); Mean Corpuscular Hemoglobin 29.8 pg (28.0-33.3); Mean Corpuscular Volume 90.5 fL (83.0-100.0); Mean Platelet Volume 12.3 fL (9.4-12.4); Monocytes # 0.6 K/mcL (0.0-1.3); Monocytes % 6.5 %; Neutrophils # 5.8 K/mcL (1.6-8.9); Platelet Count 169 K/mcL (140-400); Red Cell Distribution Width 12.6 % (11.5-14.5); Segmented Neutrophils % 68.3 %
--- NOTE | 2017-08-19 09:03 | Discharge Summary ---
<Arelis Dickens - Last Filed: 08/19/17 12:50> Date of Encounter: 08/19/17 Time of Encounter: 09:03 - Discharge Diagnosis (1) Rectal mass Priority: Primary Status: Acute - Discharge Medications Prescriptions: OxyCODONE Immed Rel [Roxicodone 5 MG] 5 mg PO Q6HR PRN 7 Days #28 tablet PRN Reason: Pain rated 4-10 Dicyclomine [Bentyl] 20 mg PO Q6H PRN #30 capsule PRN Reason: abdomial cramping Ibuprofen 800 mg PO Q8H PRN #30 tablet PRN Reason: Pain Home Medications: Dicyclomine [Bentyl] 20 mg PO Q6H PRN #30 capsule 08/19/17 [Rx] Ibuprofen 800 mg PO Q8H PRN #30 tablet 08/19/17 [Rx] OxyCODONE Immed Rel [Roxicodone 5 MG] 5 mg PO Q6HR PRN 7 Days #28 tablet [Rx] Allergies/Adverse Reactions: 3 Allergy/AdvReac Type Severity Reaction Status Date / Time acetaminophen AdvReac Chest Pain Verified 08/13/17 11:55 [From Tylenol-Codeine #3] codeine AdvReac Chest Pain Verified 08/13/17 11:55 General Surgery Exam Initial Vital Signs Temp Pulse Resp BP Pulse Ox 98.3 F 75 18 135/88 98 08/13/17 11:26 08/13/17 11:26 08/13/17 11:26 08/13/17 11:26 08/13/17 11:26 - General physical appearance well nourished, no distress, moderate pain - ENT atraumatic, normocephalic - Neck trachea midline, no venous distension - Respiratory normal expansion, normal respiratory effort, clear to auscultation - Cardiovascular Cardiovascular exam: Present: RRR, 15, 16 - Abdomen Abdomen general surgery: Present: bowel sounds present, soft, tender (Expected postoperative), wound (LUQ colostomy is noted to have expected sloughing on the inferior portion. Notable output in ostomy appliance.) Hernia: Present: none - Incision Incision: Present: clean and dry, intact - Integumentary Integumentary general surgery: Present: warm and dry, no abnormal pigmentation - Neurologic Present: CN 2-12 grossly intact, normal coordination, normal sensation - Musculoskeletal Present: normal gait, normal posture - Psychiatric Psychiatric general surgery: Present: A&Ox3, appropriate, oriented to person, oriented to place, oriented to time, speech is normal, memory intact Date of admission: 08/13/17 14:32 Primary care physician: Jose Larson MD Consults: 08/13/17 14:16 Consult to Pastoral Services [CONS] Routine Comment: 08/15/17 19:18 Consult to Oncology Hematology [CONS] Routine Consulting Provider: Comfort Cavazos Reason for Consult: new diagnosis obstructing rectal signet cell carcinoma, just had lap colostomy/mucus fistula placed Time Notified: 10:17 Call Completed: Yes Consult to Wound Care [CONS] Routine Reason for Consult: new colostomy/mucus fistula Time Notified: 10:14 Call Completed: Yes 08/16/17 09:54 Consult to Car Trimmer [CONS] Routine Reason for SW Consult: Discharge needs- new colostomy Discharging clinician: Hemalatha Dickens) Anticipated date of discharge: 08/19/17 - Patient Status Disposition: Home, Self-Care Condition: Good Functional capacity at discharge: independent ambulation Overall status at discharge: patient is progressing back to baseline - Discharge Instructions Instructions: Colostomy Care (DC), Low Fiber Diet (GEN), Soft Diet (GEN), Chronic Hypertension (DC) Follow Up With: Hemalatha Whitmore MD [Partnered Physician] - 09/05/17 9:55 am Additional Instructions: General Surgical Discharge Instructions 1. No pushing, pulling, or lifting greater than 15 lbs for 4 weeks (depending upon procedure). 2. You may shower beginning today, but no tub baths, soaking, or swimming for 2 weeks. 3. You may resume driving when you are off narcotics and are safe to react in a car. 4. Take ibuprofen every 8 hours for discomfort. If this does not relieve discomfort, you may take the as needed Roxicodone. Take narcotics as directed. Do not take more narcotics then directed and do not share your narcotics with any other person. Do not drink alcohol while on narcotics. 5. Take stool softeners (Colace) or a water based laxative (Miralax) while taking narcotics. You may hold for loose stools. 6. Report any fevers greater than 100.5F, increase abdominal discomfort, drainage that looks like pus, increased redness or pain at the surgical site, or any vomiting. 7. Report any pain in the calves, shortness of breath, or rapid heartbeat. 8. Follow-up in the office as directed. 9. If you were prescribed antibiotics, do not stop them without talking to your provider. Purchase over the counter stool softeners or Miralax if needed. No prescription has been issued for this as it is likely cheaper over the counter. - Diet and Activity Activity: increase activity as tolerated Diet: other (See diet instructions) - Hospital Course Hospital course: Ms. Saavedra is a 61 year old female who presented on 08/15/2017 for an elective laparoscopic sigmoid colostomy with mucus fistula for near obstructing rectal mass (adenocarcinoma with signet rings cells) stage III rectal cancer. Preoperative CEA elevated at 76 on 08/13/2017 there are no anemia. Oncology was consulted and recommends Neoadjuvant concurrent chemoradiation with Xeloda 1500 mg by mouth twice a day Saturday through Saturday through her course of radiation which will be about 6 weeks and outpatient oncology visit has been made. Her hospital course was relatively unremarkable with the exception of small amount of congestion noted to the inferior portion of her stoma. She is emulating avoiding without difficulty, tolerating a soft diet without nausea or vomiting, vital signs are stable, and she is afebrile. We will begin discharge planning to home with a follow-up in the office in approximately 2 weeks. Her appliance was changed and education provided prior to DC. She has been given prescriptions for ostomy supplies, pain medication, and is recommended to purchase stool softener [id number] if needed. - Time Spent with Patient Total time spent providing and/or coordinating discharge services: Greater than 30 minutes (Teaching, d/c planning, supplies, social aspects) Labs on day of discharge: Labs from last 24 hours 08/19/17 08/19/17 07:41 07:41 WBC 8.5 RBC 4.20 Hgb 12.5 Hct 38.0 MCV 90.5 MCH 29.8 MCHC 32.9 RDW 12.6 Plt Count 169 MPV 12.3 Immature Gran % 0.4 Seg Neutrophils % 68.3 Lymphocytes % 18.4 Monocytes % 6.5 Eosinophils % 5.8 Basophils % 0.6 Neutrophils # 5.8 Lymphocytes # 1.6 Monocytes # 0.6 Eosinophils # 0.5 Basophils # 0.1 Sodium 139 Potassium 3.7 Chloride 107 Carbon Dioxide 26 BUN 12 Creatinine 0.59 L Est GFR ( Amer) > 60 Est GFR (Non-Af Amer) > 60 BUN/Creatinine Ratio 20 Glucose 108 H Calculated Osmolality 288 Calcium 9.1 - Impressions ITS Impressions Abdomen/Pelvis CT 08/13/17 17:00 IMPRESSION: 1. There is a 5 cm apple core type rectal mass involving the mid rectum with mural wall thickening extending toward the rectosigmoid junction and also inferiorly into the lower rectum region about 4 cm proximal to the anus although exact measurements limited due to exam technique. Findings compatible with rectal cancer as stated in the provided history. There is accompanying numerous perirectal pelvic lymph nodes and some adenopathy along the iliac vessels including a dominant 12 mm left common iliac artery noted. Significant surrounding perirectal peritoneal fat infiltration attributed to disease extension. 2. 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 D/ / Helio Diaz MD / Helio Diaz MD Interpreting Provider: Helio Diaz MD Chest CT 08/14/17 08:30 IMPRESSION: Calcified 5 mm left lower lobe nodule. No evidence of metastatic disease. D/ / Helio Diaz MD / Helio Diaz MD Interpreting Provider: Helio Diaz MD <Hemalatha Whitmore - Last Filed: 08/19/17 14:28> Date of Encounter: 08/19/17 - Discharge Diagnosis (1) Rectal mass Priority: Primary Status: Acute (2) Hypertension Priority: Secondary Status: Chronic Qualifiers: Hypertension type: essential hypertension Qualified Code(s): I10 - Essential (primary) hypertension (3) DVT prophylaxis Priority: Secondary Status: Acute (4) Rectal cancer Priority: Primary Status: Acute General Surgery Exam Initial Vital Signs Temp Pulse Resp BP Pulse Ox 98.3 F 75 18 135/88 98 08/13/17 11:26 08/13/17 11:26 08/13/17 11:26 08/13/17 11:26 08/13/17 11:26 - General physical appearance well developed, well nourished, no distress, moderate pain - Eyes PERRL, normal ocular movement - ENT normal mucosa, normocephalic - Neck trachea midline - Respiratory normal expansion, clear to auscultation - Cardiovascular Cardiovascular exam: Present: RRR - Abdomen Abdomen general surgery: Present: bowel sounds present, soft, tender - Incision Incision: Present: clean and dry, intact - Integumentary Integumentary general surgery: Present: warm and dry, no abnormal pigmentation - Neurologic Present: CN 2-12 grossly intact, normal coordination - Musculoskeletal Present: normal gait, normal posture - Psychiatric Psychiatric general surgery: Present: A&Ox3, speech is normal - Additional Findings colostomy pink and viable, inferior superficial edge necrotics and sloughing, + flatus and stool Date of admission: 08/13/17 14:32 Primary care physician: Jose Larson MD Consults: 08/13/17 14:16 Consult to Pastoral Services [CONS] Routine Comment: 08/15/17 19:18 Consult to Oncology Hematology [CONS] Routine Consulting Provider: Comfort Cavazos Reason for Consult: new diagnosis obstructing rectal signet cell carcinoma, just had lap colostomy/mucus fistula placed Time Notified: 10:17 Call Completed: Yes Consult to Wound Care [CONS] Routine Reason for Consult: new colostomy/mucus fistula Time Notified: 10:14 Call Completed: Yes 08/16/17 09:54 Consult to Car Trimmer [CONS] Routine Reason for SW Consult: Discharge needs- new colostomy - Hospital Course Hospital course: Ms. Saavedra is a 61 year old female - Time Spent with Patient Total time spent providing and/or coordinating discharge services: Labs on day of discharge: Labs from last 24 hours 08/19/17 08/19/17 07:41 07:41 WBC 8.5 RBC 4.20 Hgb 12.5 Hct 38.0 MCV 90.5 MCH 29.8 MCHC 32.9 RDW 12.6 Plt Count 169 MPV 12.3 Immature Gran % 0.4 Seg Neutrophils % 68.3 Lymphocytes % 18.4 Monocytes % 6.5 Eosinophils % 5.8 Basophils % 0.6 Neutrophils # 5.8 Lymphocytes # 1.6 Monocytes # 0.6 Eosinophils # 0.5 Basophils # 0.1 Sodium 139 Potassium 3.7 Chloride 107 Carbon Dioxide 26 BUN 12 Creatinine 0.59 L Est GFR ( Amer) > 60 Est GFR (Non-Af Amer) > 60 BUN/Creatinine Ratio 20 Glucose 108 H Calculated Osmolality 288 Calcium 9.1 - Impressions ITS Impressions Abdomen/Pelvis CT 08/13/17 17:00 IMPRESSION: 1. There is a 5 cm apple core type rectal mass involving the mid rectum with mural wall thickening extending toward the rectosigmoid junction and also inferiorly into the lower rectum region about 4 cm proximal to the anus although exact measurements limited due to exam technique. Findings compatible with rectal cancer as stated in the provided history. There is accompanying numerous perirectal pelvic lymph nodes and some adenopathy along the iliac vessels including a dominant 12 mm left common iliac artery noted. Significant surrounding perirectal peritoneal fat infiltration attributed to disease extension. 2. 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 D/ / Helio Diaz MD / Helio Diaz MD Interpreting Provider: Helio Diaz MD Chest CT 08/14/17 08:30 IMPRESSION: Calcified 5 mm left lower lobe nodule. No evidence of metastatic disease. D/ / Helio Diaz MD / Helio Diaz MD Interpreting Provider: Helio Diaz MD Abdomen X-Ray 08/19/17 09:08 IMPRESSION: Nonobstructed bowel-gas pattern. D/ / 08/19/2017 09:49:54 Karlo Flowers MD / bcaroxy Interpreting Provider: Karlo Flowers MD - Attending Attestation I have personally performed a face to face evaluation on this patient. I have reviewed and agree with the care plan. History and Exam by me shows:
--- NOTE | 2017-08-19 09:04 | Physician Discharge Referral ---
Home Health/Hosp Referral Info Transfer to: Home Health Attending Provider: Dr. Hemalatha Whitmore Provider in Charge Post Discharge: Other (Dr. Hemalatha Whitmore) - Diagnosis (1) Rectal cancer Status: Acute - Respiratory Orders Smoking Cessation: Smoking cessation has been advised. For more information, call the [place] Tobacco Quit Line at 3-547-MWCQ-NOW. - Transfer Medications Home Medications: No Known Home Drugs 08/13/17 [History] Allergies/Adverse Reactions: 3 Allergy/AdvReac Type Severity Reaction Status Date / Time acetaminophen AdvReac Chest Pain Verified 08/13/17 11:55 [From Tylenol-Codeine #3] codeine AdvReac Chest Pain Verified 08/13/17 11:55 Certification: Further, I certify that my clinical findings support that this patient is homebound (i.e. absences from home require considerable and taxing effort and are for medical reasons or tenriism services or infrequently or short duration when for other reasons) because: Attestation: My signature below is to certify that this patient is under my care and that I, or nurse practitioner, or a physician's service assistant working with me, has a face-to -face encounter with this patient.
[2017-08-19] MEDS ORDERED: *HR* OxyCODONE Immed Rel 5 MG TABLET PO PRN (09:05)
[2017-08-19] MEDS ORDERED: Ketorolac 15 MG/ML VIAL IVP ONE (09:07)
[2017-08-19 11:17] VITALS: BP 149/71
== END 2017-08-19 13:43 | disposition home or self-care (01) | DRG 331 ==
LOC: 3ANU 09:59 → ENDPAV 09:59 → 3ANU 16:33
PROVIDERS: ADMIT Surgery; ATTEND Surgery
PROC: ENDOCBX (2017-08-13 11:25)

== ENCOUNTER 2018-04-29 16:04 | Inpatient (IN) ==
[2018-04-29] MEDS ORDERED: *HR* Heparin 5,000 UNIT/ML VIAL IVP ONE (16:40)
[2018-04-29] MEDS ORDERED: *HR* Heparin 5,000 UNIT/ML VIAL IVP PRN ×2 (16:40)
--- NOTE | 2018-04-29 16:58 | Emergency Department Note ---
Disposition Clinical Impression: DVT, bilateral lower limbs Qualifiers: Affected thrombotic vein of extremity: popliteal Chronicity: acute Qualified Code(s): I82.433 - Acute embolism and thrombosis of popliteal vein, bilateral Disposition: Admitted As Inpatient Condition: Fair Time of Disposition: 17:18 General Adult HPI - General Chief complaint: ED Extremity Injury, Lower Stated complaint: Positive DVT Time Seen by Provider: 04/29/18 16:20 Source: patient Mode of arrival: ambulatory Limitations: no limitations Nursing Notes Reviewed: Yes Vital Signs Reviewed: Yes - History of Present Illness HPI Narrative: Patient is a 62-year-old female with past medical history of active colon cancer presents to the emergency department from her oncology office after having positive bilateral lower extremity ultrasounds for DVTs. She also had a CT of her chest done which was negative for PE. She is sent here by her oncologist for admission and heparinization for her bilateral lower extremity blood clots. The patient states that she has been having pain behind both knees bilaterally for the past 3 weeks and that is what prompted the investigation for blood clots denies a history of blood clots. States otherwise she has had no difficulty with ambulation, no focal neurological deficits, no chest pain or shortness of breath. States that she is fatigued however this is been going on for the past 5 months. She states that she has a left chest port in which she receives chemotherapy through and currently on week 10 of biweekly treatments. Pain Scale: 0 - Related Data Home Medications Medication Instructions Recorded Confirmed Dicyclomine [Bentyl] 20 mg PO QID PRN 04/15/18 04/29/18 Previous Rx's Medication Instructions Recorded Ondansetron HCl [Zofran] 4 mg PO Q4H PRN #30 tablet 08/20/17 Prochlorperazine Maleate 10 mg PO Q6H PRN #30 tablet 08/20/17 [Compazine] Lidocaine/Prilocaine [Emla] 1 appl TP AD #30 gm 08/23/17 Loperamide [Imodium] 2 mg PO AD PRN #30 capsule 08/23/17 Magic Mouthwash 5 ml PO Q4H PRN #240 ml 08/23/17 Ibuprofen 800 mg PO Q8H PRN #30 tablet 02/12/18 Omeprazole 20 mg PO DAILY #30 tablet. 02/12/18 Allergies Allergy/AdvReac Type Severity Reaction Status Date / Time codeine AdvReac Chest Pain Verified 04/29/18 09:21 All systems ED: reviewed and negative except as stated. Review of Systems: As Per HPI Constitutional: Denies: fever, chills Cardiovascular: Denies: chest pain, palpitations, dyspnea on exertion Gastrointestinal: Denies: abdominal pain, nausea, vomiting Musculoskeletal: Reports: other (bilateral posterior calf pain) Past Medical History - Past Medical History Attestation: Yes The following information was validated with the patient. Medical history: Reports: arthritis, cancer, hyperlipidemia, hypertension, other Surgical history: Reports: cholecystectomy, other Psychiatric history: Reports: no psych history - Social History Smoking Status: Former smoker Smokeless Tobacco Status: No Alcohol use: Reports: occasionally Drug use: Reports: none Physical Exam CONSTITUTIONAL: Well-appearing; well-nourished; A&O X 3, in no apparent distress HEAD: Normocephalic; atraumatic EYES: PERRL, no scleral icterus NOSE: The nose is normal in appearance without rhinorrhea NECK: No JVD or distended neck veins RESP: Normal chest excursion with respiration; breath sounds clear and equal bilaterally; no wheezes, rhonchi, or rales CARD: Regular rhythm, without murmurs, rub or gallop ABD: Non-distended; non-tender, soft, without rigidity, rebound or guarding,no pulsatile mass CHEST: No pain with palpation SKIN: Normal for age and race; warm and dry without diaphoresis ; no apparent lesions EXTREMITIES: Pulses are 2 plus and equal times 4 extremities, no peripheral edema. Bilateral calf muscle pain - General Limitations: no limitations General appearance: alert, in no apparent distress Course Course Narrative: Patient was called in by her oncologist to come to the emergency department in which my attending received the incoming call stating that he requested she be admitted to the hospital for her bilateral DVTs given how extensive they are. She does have a report with her and the report does show positive bilateral lower extremity DVTs. She denies any chest pain or shortness of breath. Plan at this time disorder basic labs and initiate heparinization as well as admission to the hospital for this patient. Discussed with the patient and she agrees. - Reevaluation(s) Reevaluation #1: Patient accepted by Dr. Flowers to the hospital for bilateral DVTs. Time: 17:18 Vital Signs Temperature 97.8 F 04/29/18 16:16 Pulse Rate 79 04/29/18 16:16 Respiratory Rate 18 04/29/18 16:16 Blood Pressure 171/105 04/29/18 16:16 O2 Sat by Pulse Oximetry 99 04/29/18 16:16 Temperature 97.8 F 04/29/18 16:36 Pulse Rate 79 04/29/18 16:36 Respiratory Rate 18 04/29/18 16:36 Blood Pressure 171/105 04/29/18 16:36 O2 Sat by Pulse Oximetry 99 04/29/18 16:36 Oxygen Delivery Oxygen Delivery Room Air Medical Decision Making - Medical Records Medical records reviewed: Yes I reviewed the patient's medical records. - Lab Data Lab results reviewed: Yes I reviewed the patient's lab results. Result diagrams: 04/29/18 16:52 04/29/18 16:52 Lab Results 04/29/18 Range/Units 16:52 WBC 5.5 (4.3-11.1) K/mcL RBC 3.53 L (3.82-4.97) M/mcL Hgb 11.0 L (11.5-15.4) g/dL Hct 33.0 L (35.3-44.9) % MCV 93.5 (83.0-100.0) fL MCH 31.2 (28.0-33.3) pg MCHC 33.3 (31.6-35.5) g/dL RDW 17.0 H (11.5-14.5) % Plt Count 147 (140-400) K/mcL MPV 11.2 (9.4-12.4) fL - Radiology Data Radiology results reviewed: Yes I reviewed the patient's radiology results. CTA Chest and DVT report from outpatient reviewed.
--- NOTE | 2018-04-29 17:10 | Emergency Department Note ---
Disposition Clinical Impression: DVT, bilateral lower limbs Disposition: Admitted As Inpatient Condition: Fair General Adult HPI - General Chief complaint: ED Extremity Injury, Lower Stated complaint: Positive DVT Time Seen by Provider: 04/29/18 16:20 Source: patient Mode of arrival: ambulatory Limitations: no limitations - History of Present Illness Pain Scale: 0 - Related Data Home Medications Medication Instructions Recorded Confirmed Dicyclomine [Bentyl] 20 mg PO QID PRN 04/15/18 04/29/18 Previous Rx's Medication Instructions Recorded Ondansetron HCl [Zofran] 4 mg PO Q4H PRN #30 tablet 08/20/17 Prochlorperazine Maleate 10 mg PO Q6H PRN #30 tablet 08/20/17 [Compazine] Lidocaine/Prilocaine [Emla] 1 appl TP AD #30 gm 08/23/17 Loperamide [Imodium] 2 mg PO AD PRN #30 capsule 08/23/17 Magic Mouthwash 5 ml PO Q4H PRN #240 ml 08/23/17 Ibuprofen 800 mg PO Q8H PRN #30 tablet 02/12/18 Omeprazole 20 mg PO DAILY #30 tablet. 02/12/18 Allergies Allergy/AdvReac Type Severity Reaction Status Date / Time codeine AdvReac Chest Pain Verified 04/29/18 09:21 Constitutional: Denies: fever, chills Cardiovascular: Denies: chest pain, palpitations, dyspnea on exertion Gastrointestinal: Denies: abdominal pain, nausea, vomiting Musculoskeletal: Reports: other (bilateral posterior calf pain) Past Medical History - Past Medical History Medical history: Reports: arthritis, cancer, hyperlipidemia, hypertension, other Surgical history: Reports: cholecystectomy, other Psychiatric history: Reports: no psych history - Social History Smoking Status: Former smoker Smokeless Tobacco Status: No Alcohol use: Reports: occasionally Drug use: Reports: none Physical Exam - General Limitations: no limitations General appearance: alert, in no apparent distress Course Vital Signs Temperature 97.8 F 04/29/18 16:16 Pulse Rate 79 04/29/18 16:16 Respiratory Rate 18 04/29/18 16:16 Blood Pressure 171/105 04/29/18 16:16 O2 Sat by Pulse Oximetry 99 04/29/18 16:16 Temperature 97.8 F 04/29/18 16:36 Pulse Rate 93 04/29/18 18:00 Respiratory Rate 17 04/29/18 18:00 Blood Pressure 187/115 04/29/18 18:00 O2 Sat by Pulse Oximetry 98 04/29/18 18:00 Oxygen Delivery Oxygen Delivery Room Air Medical Decision Making - Lab Data Result diagrams: 04/29/18 16:52 04/29/18 16:52 Lab Results 04/29/18 04/29/18 04/29/18 Range/Units 16:52 16:52 16:52 WBC 5.5 (4.3-11.1) K/mcL RBC 3.53 L (3.82-4.97) M/mcL Hgb 11.0 L (11.5-15.4) g/dL Hct 33.0 L (35.3-44.9) % MCV 93.5 (83.0-100.0) fL MCH 31.2 (28.0-33.3) pg MCHC 33.3 (31.6-35.5) g/dL RDW 17.0 H (11.5-14.5) % Plt Count 147 (140-400) K/mcL MPV 11.2 (9.4-12.4) fL Immature Gran % 0.7 (0-4) % Seg Neutrophils % 92.9 % Lymphocytes % 4.7 % Monocytes % 1.1 % Eosinophils % 0.2 % Basophils % 0.4 % Neutrophils # 5.1 (1.6-8.9) K/mcL Lymphocytes # 0.3 L (0.6-4.6) K/mcL Monocytes # 0.1 (0.0-1.3) K/mcL Eosinophils # 0.0 (0.0-0.6) K/mcL Basophils # 0.0 (0.0-0.2) K/mcL Platelet Estimate Normal (Normal) PT 12.1 (9.4-12.1) Seconds INR 1.1 APTT 31.7 (26.0-36.0) Seconds Heparin Anti-Xa, Unfract 0.03 L (0.30-0.70) IU/mL Sodium 135 L (136-145) mEq/L Potassium 3.6 (3.5-5.1) mEq/L Chloride 102 (98-107) mEq/L Carbon Dioxide 23 (23-29) mEq/L BUN 7 L (8-23) mg/dL Creatinine 0.60 (0.60-1.20) mg/dL Est GFR ( Amer) > 60 (> 60) Est GFR (Non-Af Amer) > 60 (> 60) BUN/Creatinine Ratio 12 (6-26) Glucose 162 H (70-105) mg/dL Calculated Osmolality 282 (280-300) Calcium 9.5 (8.6-10.3) mg/dL Critical Care Time Critical Care Time: Yes Total Critical Care Time: 35 Attestation: Critical care performed: Time is exclusive of separately billable procedures. Time includes: direct patient care, patient reassessment, coordination of patient care, interpretation of data (laboratory data, radiology data, and respiratory data), review of patient's medical records, medical consultation and documentation of patient care. Procedures included in critical care time: Procedures excluded from critical care time: Attestation Statement - Attestation Attestation: I examined this patient and my medical decision-making was reviewed with the Resident Physician. I agree with the documented findings, disposition and treatment plan as described except to the extent set forth below. Patient presents to the ED with a chief complaint of DVTs. Patient extensive bi lateral DVTs when she had an outpatient ultrasound today. Had a CT scan that was negative for PEs. She was sent for heparinization and admission. Patient has metastatic cancer. She is pleasant conversant on examination. Feet pink and warm. Plan. IV heparin and admit.
[2018-04-29 17:11] LABS: Eosinophils % 0.2 %; Immature Granulocytes % 0.7 % (0-4); Lymphocytes % 4.7 %; Mean Corpuscular HGB Conc 33.3 g/dL (31.6-35.5); Mean Corpuscular Hemoglobin 31.2 pg (28.0-33.3); Mean Corpuscular Volume 93.5 fL (83.0-100.0); Mean Platelet Volume 11.2 fL (9.4-12.4); Monocytes % 1.1 %; Platelet Count 147 K/mcL (140-400); Red Blood Count 3.53 M/mcL (3.82-4.97); Segmented Neutrophils % 92.9 %
[2018-04-29 17:12] LABS: Basophils % 0.4 %; Lymphocytes # 0.3 K/mcL (0.6-4.6); Monocytes # 0.1 K/mcL (0.0-1.3); Neutrophils # 5.1 K/mcL (1.6-8.9)
[2018-04-29 17:20] LABS: INR 1.1; Prothrombin Time 12.1 Seconds (9.4-12.1)
[2018-04-29 17:21] LABS: Heparin anti-factor XA UFH 0.03 IU/mL (0.30-0.70)
[2018-04-29 17:23] LABS: Activated Partial Thrombo Time 31.7 Seconds (26.0-36.0)
[2018-04-29 17:30] LABS: BUN/Creatinine Ratio 12 (6-26); Blood Urea Nitrogen 7 mg/dL (8-23); Calcium 9.5 mg/dL (8.6-10.3); Carbon Dioxide 23 mEq/L (23-29); Chloride 102 mEq/L (98-107); Glucose 162 mg/dL (70-105); Osmolality,Calculated 282 (280-300); Potassium 3.6 mEq/L (3.5-5.1); Sodium 135 mEq/L (136-145); eGFR For Non-African Americans > 60 (> 60)
[2018-04-29 17:31] LABS: Platelet Estimate Normal (Normal)
[2018-04-29] MEDS: Heparin 25,000 UNIT/500 ML D5W 25,000 UNIT/500 ML BAG IVC SCH (17:53)
[2018-04-29] MEDS ORDERED: Magic Mouthwash 10 ML UD Cup PO PRN (17:54)
[2018-04-29] MEDS ORDERED: Ondansetron ODT 4 MG TAB.RAPDIS PO PRN (17:54)
[2018-04-29] MEDS ORDERED: Ibuprofen 800 MG TABLET PO PRN (17:54)
[2018-04-29] MEDS ORDERED: Naloxone 0.4 MG/ML INJ IVP PRN (17:55)
--- NOTE | 2018-04-29 18:13 | Internal Med History&Physical ---
Date of Encounter: 04/29/18 Time of Encounter: 18:05 Internal Medicine - H&P: HPI Chief complaint: B/L leg pain; venous US reveals bilateral lower extremity DVTs Admitted From: Home Plans for Post Hospital Care: Home History of present illness: Ms. Saavedra is a 62 year old female with a PMH of active colon cancer, metastatic to the thoracic spine, left orbit and left sphenoid area, arthritis, HLD and HTN. She presents today from her oncologist office. She reports that she was therefore a follow-up visit and stated that she has been having pain behind bilateral knees which is worse with activity and prolonged standing. She was sent to cardiopulmonary for venous Dopplers of bilateral lower extremities and was found to have extensive DVTs bilateral popliteal veins. She denies any chest pain, shortness of breath, night sweats, weight loss, appetite changes, focal neurological deficits or extremity swelling. She does admit to bilateral lower extremity pain, and fatigue. She reports that she has been receiving biweekly chemotherapy treatments is currently on week #10 of 7 treatments. She is being admitted for further monitoring and evaluation and will need to be started on a heparin gtt. Also, oncology will be consulted during stay. Past Med Surg Social Fam HX - Past Medical History Medical history: arthritis, cancer, hyperlipidemia, hypertension, other Additional medical history: Rectal Cancer. Psychiatric history: no psych history - Past Surgical History Surgical History: cholecystectomy, other Additional surgical history: DNC, tubal ligation - Social History Smoking Status: Former smoker Smokeless Tobacco Status: No Alcohol use: occasionally Drug use: none - Family History Father Living Status: Hx Family Cancer: Yes (Colon Cancer) Mother Living Status: Hx Family Cancer: Yes (Breast Cancer) Internal Medicine - H&P: Meds Ondansetron HCl [Zofran] 4 mg PO Q4H PRN #30 tablet 08/20/17 [Rx] Prochlorperazine Maleate [Compazine] 10 mg PO Q6H PRN #30 tablet 08/20/17 [Rx] Lidocaine/Prilocaine [Emla] 1 appl TP AD #30 gm 08/23/17 [Rx] Loperamide [Imodium] 2 mg PO AD PRN #30 capsule 08/23/17 [Rx] Magic Mouthwash 5 ml PO Q4H PRN #240 ml 08/23/17 [Rx] Ibuprofen 800 mg PO Q8H PRN #30 tablet 02/12/18 [Rx] Omeprazole 20 mg PO DAILY #30 tablet. 02/12/18 [Rx] Dicyclomine [Bentyl] 20 mg PO QID PRN 04/15/18 [History] Allergy/AdvReac Type Severity Reaction Status Date / Time codeine AdvReac Chest Pain Verified 04/29/18 09:21 All Systems PM: A 10-system review of systems was performed and is negative for pertinent findings except as documented above in the HPI. - Constitutional Constitutional: as per HPI - Cardiovascular Cardiovascular ROS IM: no chest pain, no dyspnea, no dyspnea on exertion, no edema, no irregular heart rhythm, no lightheadedness, no orthopnea, no palpitations - Respiratory Respiratory: no cough, no dyspnea, no dyspnea on exertion, no wheezing - Gastrointestinal Gastrointestinal: no abdominal pain, no diarrhea, no hematemesis, no hematochezia, no melena, no nausea, no vomiting - Musculoskeletal Musculoskeletal ROS IM: myalgias, no numbness, no tingling - Neurological Neurological ROS: no confusion, no convulsions, no focal weakness, no numbness, no tingling, no tremor(s) - Constitutional Vitals: Temp Pulse Resp BP Pulse Ox 97.8 F 93 17 187/115 98 04/29/18 16:36 04/29/18 18:00 04/29/18 18:00 04/29/18 18:00 04/29/18 18:00 General appearance: Present: A&O X 3 Exam: see exam - Head Head exam: Present: atraumatic, normocephalic - Eye Eye exam: Present: PERRL, conjuntiva pink, sclera anicteric Pupils: Present: PERRL - Neck Neck exam general surgery: Present: supple, trachea midline. Absent: lymphadenopathy - Respiratory Respiratory exam: Present: CTAB. Absent: accessory muscle use, rales, rhonchi, wheezes - Cardiovascular Cardiovascular exam: Present: RRR, +S1, +S2. Absent: diastolic murmur, gallop, rubs, systolic murmur - GI/Abdominal GI/Abdominal exam: Present: normal bowel sounds, soft, no peritoneal signs. Absent: distended, tenderness Additional comments: Colostomy present - Extremities Exam Extremities exam: Present: normal capillary refill, tenderness (Mild tenderness to bilateral lower extremity), warm, radial pulses palpable and symmetrical. Absent: calf tenderness, cyanotic, pedal edema - Neurological Exam Neurological exam: Present: CN II-XII intact, oriented X3, no focal deficits. Absent: pronater drift, facial droop, speech deficit - Skin Skin exam: Present: dry, intact Internal Med - H&P Results - Labs CBC & Chem 7: 04/29/18 16:52 04/29/18 16:52 Labs: Short CBC 04/29/18 Range/Units 16:52 WBC 5.5 (4.3-11.1) K/mcL Hgb 11.0 L (11.5-15.4) g/dL Hct 33.0 L (35.3-44.9) % Plt Count 147 (140-400) K/mcL Neutrophils # 5.1 (1.6-8.9) K/mcL BMP 04/29/18 16:52 Sodium 135 L Potassium 3.6 Chloride 102 Carbon Dioxide 23 BUN 7 L Creatinine 0.60 Glucose 162 H Calcium 9.5 - Impressions CTA chest Pulmonary Arteries: Pulmonary arteries are adequately opacified for evaluation. No evidence of intraluminal filling defect to suggest pulmonary embolism. Main pulmonary artery is normal in caliber. Mediastinum: No evidence of mediastinal lymphadenopathy. The heart and pericardium demonstrate no acute abnormality. There is no acute abnormality of the thoracic aorta. Lungs/pleura: No pneumothorax, pleural effusion or airspace consolidation. Dependent atelectasis. Clear central airways. Upper Abdomen: Limited images of the upper abdomen are unremarkable. Soft Tissues/Bones: No acute soft tissue or osseous abnormality. Moderate thoracic spondylosis. - Assessment and plan (1) DVT, bilateral lower limbs Current Visit: Yes Status: Acute Assessment and plan: Presented today from oncologist's office with positive bilateral popliteal DVTs Reports that she has been having bilateral calf pain Treat with heparin drip Consult oncology; D/W oncologist and patient whether to start the lack of versus vitamin K antagonist CTA chest negative for PE Monitor closely on telemetry Recheck labs in the morning Qualifiers: Affected thrombotic vein of extremity: popliteal Chronicity: acute Qualified Code(s): I82.433 - Acute embolism and thrombosis of popliteal vein, bilateral (2) Hypertension Current Visit: No Status: Chronic Assessment and plan: History of hypertension Hypertensive episodes during the stay Start PRN hydralazine; for SBP greater than 160 Qualifiers: Hypertension type: essential hypertension Qualified Code(s): I10 - Carlos knappbishnu (primary) hypertension (3) Rectal cancer Current Visit: No Status: Acute Assessment and plan: Follow with [facility]; stage III rectal cancer underwent laparoscopic sigmoid colostomy with mucous fistula on 08/15/17 Subsequent treatment with chemoradiation with 5-nephew infusion; completed her treatment Has had progression of metastatic disease with new upper abdominal lymphadenopathy, skeletal metastasis and new mass on left orbit and left sphenoid area Has been receiving palliative radiation to the left orbit from a 1518 to age 2818 for total of 10 doses Continuing to receive systemic treatment for metastatic disease with FOLFOX and have a statin Receiving biweekly treatments with palliative intent, cycle #5 pleated 04/29/18 Follow-up appointment with oncology in office today; found bilateral lower extremity DVTs, treat as stated above (4) Metastatic disease Current Visit: No Status: Acute Assessment and plan: as above (5) Sphenoid mass, left Current Visit: Yes Status: Acute Assessment and plan: As above (6) Orbital mass Current Visit: Yes Status: Acute Assessment and plan: as above - Time Spent With Patient Total time spent is greater than 50% in coordination of care (as documented) at patient's floor/unit and/or counseling patient: 25 - 35 minutes
[2018-04-30 00:53] LABS: BUN/Creatinine Ratio 16 (6-26); Blood Urea Nitrogen 9 mg/dL (8-23); Calcium 9.2 mg/dL (8.6-10.3); Carbon Dioxide 21 mEq/L (23-29); Chloride 104 mEq/L (98-107); Glucose 192 mg/dL (70-105); Osmolality,Calculated 280 (280-300); Potassium 3.9 mEq/L (3.5-5.1); Sodium 133 mEq/L (136-145); eGFR For Non-African Americans > 60 (> 60)
[2018-04-30 01:21] LABS: Hematocrit 28.6 % (35.3-44.9); Lymphocytes # 0.3 K/mcL (0.6-4.6); Lymphocytes % 6.4 %; Mean Corpuscular HGB Conc 32.9 g/dL (31.6-35.5); Mean Corpuscular Hemoglobin 30.6 pg (28.0-33.3); Mean Corpuscular Volume 93.2 fL (83.0-100.0); Mean Platelet Volume 11.4 fL (9.4-12.4); Monocytes # 0.2 K/mcL (0.0-1.3); Neutrophils # 4.3 K/mcL (1.6-8.9); Platelet Count 142 K/mcL (140-400); Red Blood Count 3.07 M/mcL (3.82-4.97); Segmented Neutrophils % 88.6 %
[2018-04-30 01:46] LABS: Hemoglobin 9.4 g/dL (11.5-15.4)
--- NOTE | 2018-04-30 10:28 | Internal Med Progress Note ---
Hospitalist Progress Note - Encounter Date of Encounter: 04/30/18 Time of Encounter: 10:25 - Subjective Interval History: No acute changes overnight. Continues to easily fatigued with activity which is expected given her history of metastatic colorectal cancer. Additionally, she has continued to have bilateral lower extremity pain with prolonged standing and exertion. Discussed plan of care including continuing heparin drip and transitioning to oral anticoagulation. - Exam Vitals: Temp Pulse Resp BP Pulse Ox 98.0 F 79 16 137/79 98 04/30/18 07:18 04/30/18 07:18 04/30/18 07:18 04/30/18 07:18 04/30/18 07:18 Exam: PHYSICAL EXAMINATION: GENERAL: The patient is an obese, ill appearing female. She is a and O 3 and without any distress HEENT: Head is normocephalic and atraumatic. Extraocular muscles are intact. Pupils are equal, round, and reactive to light and accommodation. NECK: Supple. No carotid bruits. No lymphadenopathy or thyromegaly. LUNGS: Clear to auscultation throughout AP and L. HEART: Regular rate and rhythm, S1, S2 without murmur. ABDOMEN: Soft, nontender, and nondistended. Positive bowel sounds. No hepatosplenomegaly was noted. EXTREMITIES: Without any cyanosis, clubbing, rash, lesions or edema. Mild bilateral calf tenderness to palpation, posterior tibial and dorsal patellas pulses 1+ bilaterally to palpation NEUROLOGIC: Cranial nerves II through XII are grossly intact. SKIN: No ulceration or induration present. - Assessment and Plan (1) DVT, bilateral lower limbs Current Visit: Yes Status: Acute Assessment and Plan: Presented today from oncologist's office with positive bilateral popliteal DVTs Reports that she has been having bilateral calf pain Treat with heparin drip Consult oncology; D/W oncologist and patient whether to start the lack of versus vitamin K antagonist CTA chest negative for PE Monitor closely on telemetry Recheck labs in the morning 04/30--continues to have mild bilateral calf pain with prolonged activity and prolonged standing. History of metastatic colorectal cancer, hypercoagulable state. Currently on heparin drip and will need transitioned to oral anticoagulation. Discuss case this afternoon with oncologist regarding the use of DOAC versus vitamin K antagonist. If vitamin K antagonist is medication of choice the patient will need bridge therapy with heparin and/or at home bridge therapy with weight-based Lovenox. (2) Hypertension Current Visit: No Status: Chronic Assessment and Plan: History of hypertension Hypertensive episodes yesterday, improved with addition of AMBER I, and IV hydralazine Blood pressure now stable 137/79, continue with AMBER inhibitor and hydralazine as needed (3) Rectal cancer Current Visit: No Status: Acute Assessment and Plan: Follow with [facility]; stage III rectal cancer underwent laparoscopic sigmoid colostomy with mucous fistula on 08/15/17 Subsequent treatment with chemoradiation with 5-nephew infusion; completed her treatment Has had progression of metastatic disease with new upper abdominal lymphadenopathy, skeletal metastasis and new mass on left orbit and left sphenoid area Has been receiving palliative radiation to the left orbit from a 1518 to age 2818 for total of 10 doses Continuing to receive systemic treatment for metastatic disease with FOLFOX and have a statin Receiving biweekly treatments with palliative intent, cycle #5 pleated 04/29/18 Follow-up appointment with oncology in office today; found bilateral lower extremity DVTs, treat as stated above 04/30--To discuss with oncology nurse practitioner this afternoon, from review of notes it appears the patient is continuing to undergo palliative treatments. (4) Metastatic disease Current Visit: No Status: Acute Assessment and Plan: as above (5) Sphenoid mass, left Current Visit: Yes Status: Acute Assessment and Plan: As above (6) Orbital mass Current Visit: Yes Status: Acute Assessment and Plan: as above DVT Prophylaxis: continue heparin gtt transition to oral anticoagulants d/w oncology - Time Spent with Patient Total time spent is greater than 50% in coordination of care (as documented) at patient's floor/unit and/or counseling patient: less than 15 minutes Plan of Care Discussed with: patient Internal Medicine: Result - Labs CBC & Chem 7: 04/30/18 00:25 04/30/18 00:25 Labs: Short CBC 04/29/18 04/30/18 Range/Units 16:52 00:25 WBC 5.5 4.8 (4.3-11.1) K/mcL Hgb 11.0 L 9.4 L D (11.5-15.4) g/dL Hct 33.0 L 28.6 L (35.3-44.9) % Plt Count 147 142 (140-400) K/mcL Neutrophils # 5.1 4.3 (1.6-8.9) K/mcL BMP 04/29/18 04/30/18 16:52 00:25 Sodium 135 L 133 L Potassium 3.6 3.9 Chloride 102 104 Carbon Dioxide 23 21 L BUN 7 L 9 Creatinine 0.60 0.58 L Glucose 162 H 192 H Calcium 9.5 9.2 - ABG Interpretation ABG results: PT/INR, D-dimer PT 12.1 Seconds (9.4-12.1) 04/29/18 16:52 Consult Discharge Plan - Plan Referrals: Jose Larson MD [Primary Care Provider] - (1) DVT, bilateral lower limbs Qualifiers: Affected thrombotic vein of extremity: popliteal Chronicity: acute Qualified Code(s): I82.433 - Acute embolism and thrombosis of popliteal vein, bilateral (2) Hypertension Qualifiers: Hypertension type: essential hypertension Qualified Code(s): I10 - Essential (primary) hypertension
--- NOTE | 2018-04-30 15:48 | Oncology Inp Consult Note ---
<Andressa Box L - Last Filed: 04/30/18 15:46> Date of Encounter: 04/30/18 Time of Encounter: 13:00 Assessment and Plan (1) Rectal cancer Status: Acute Assessment and plan: Current therapy includes:Systemic treatment for metastatic disease FOLFOX and Avastin Intent: Palliative Cycle repeated every 2 weeks Number of cycles: 12 Oxaliplatin 85 mg/m IV day 1 5-FU and leucovorin bolus 200 mg/m IV day 1 Home 5-FU 2400 mg over 46 hours starting day 1 Avastin 5 mg per KG IV day 1 S/P Cycle 5 today on 04/29/2018 She continues with her home 5-FU 46 hour dose at this time---> due mccarthy disconnection at 1345 tomorrow Tolerating treatment well with no reported side effects today She has abdominal cramping that she typically experiences with treatment, she has bentyl ordered prn to help with symptom management Blood counts stable Continue to avoid any cold temperature food or items x3-5 days following oxaliplatin (2) DVT, bilateral lower limbs Status: Acute Assessment and plan: awaiting final venous Doppler report. According to preliminary report patient has a DVT of the bilateral lower extremities from her ankle to her iliac crest Symptoms have stabilized while on heparin drip CTA of the chest was negative We discussed plans for indefinite anticoagulation with transition from heparin gtt Patient is unable to afford DOACs, we discussed alternative option for coumadin Hospitalist team and care management are working out logistics to assist with coumadin clinic referral and transition from heparin to coumadin with lovenox bridge, appreciate assistance Qualifiers: Affected thrombotic vein of extremity: popliteal Chronicity: acute Qualified Code(s): I82.433 - Acute embolism and thrombosis of popliteal vein, bilateral - Data of Consult Patient: known to practice within the last 3 years Consult date: 04/30/18 Requesting Physician: Aidee Flowers MD Primary Care Provider: Jose Larson MD - Consult Narrative Reason for consult: Stage III rectal cancer, Bilateral DVT History of present illness: Ms. Saavedra is a 62 year old female with AJCC Stage III rectal cancer. Prior treatment summary includes: 1. Completed concurrent chemoradiation with home 5-FU infusion on 10/18/2017 2. Low anterior resection 01/20/2018 showed PT 4, N1 with positive margin 3. Progression to metastatic disease. PET scan 02/05/2018 showed new upper abdominal lymphadenopathy. There is skeletal metastases including T8 ,T10. Left subscapularis uptake without CT correlate. MRI brain and orbits showed new mass in the left orbit and left sphenoid area January 2018 CEA when up to 159 on 01/07/2018 from 11 on October 2017. Further when up to 704 on January 2018 4. Palliative radiation to the left orbit from 02/12/2018 to 02/25/2018 total 10 doses 5. Current therapy includes:Systemic treatment for metastatic disease FOLFOX and Avastin Intent: Palliative Cycle repeated every 2 weeks Number of cycles: 12 Oxaliplatin 85 mg/m IV day 1 5-FU and leucovorin bolus 200 mg/m IV day 1 Home 5-FU 2400 mg over 46 hours starting day 1 Avastin 5 mg per KG IV day 1 S/P Cycle 5 today on 04/29/2018 Patient presented with SOB and BLE edema, a stat CTA chest and BLE venous dopplers were ordered. According to preliminary report patient has DVTs extending from ankle to groin, I do not see a preliminary report to notate exact locations of DVT at this time. Patient was asked to present to ER. Heparin gtt was initiated. Past Med Surg Social Fam HX - Past Medical History Medical history: arthritis, cancer, hyperlipidemia, hypertension, other Additional medical history: Rectal Cancer. Psychiatric history: no psych history - Past Surgical History Surgical History: cholecystectomy, other Additional surgical history: DNC, tubal ligation - Social History Smoking Status: Former smoker Smokeless Tobacco Status: No Alcohol use: occasionally Drug use: none - Family History Father Living Status: Hx Family Cancer: Yes (Colon Cancer) Mother Living Status: Hx Family Cancer: Yes (Breast Cancer) Medications and Allergies RX: Ondansetron HCl [Zofran] 4 mg PO Q4H PRN #30 tablet 08/20/17 [Rx] RX: Prochlorperazine Maleate [Compazine] 10 mg PO Q6H PRN #30 tablet 08/20/17 [Rx] RX: Lidocaine/Prilocaine [Emla] 1 appl TP AD #30 gm 08/23/17 [Rx] RX: Loperamide [Imodium] 2 mg PO AD PRN #30 capsule 08/23/17 [Rx] RX: Magic Mouthwash 5 ml PO Q4H PRN #240 ml 08/23/17 [Rx] RX: Ibuprofen 800 mg PO Q8H PRN #30 tablet 02/12/18 [Rx] RX: Omeprazole 20 mg PO DAILY #30 tablet. 02/12/18 [Rx] Dicyclomine [Bentyl] 20 mg PO QID PRN 04/15/18 [History] Allergy/AdvReac Type Severity Reaction Status Date / Time codeine AdvReac Chest Pain Verified 04/29/18 09:21 Constitutional: Present: anorexia, fatigue, weakness, weight loss. Absent: chills, fever(s) Eyes: Absent: change in vision Nose, mouth and throat: Absent: dysphagia Cardiovascular: Absent: chest pain, palpitations Respiratory: Present: cough, dyspnea. Absent: hemoptysis Gastrointestinal: Absent: abdominal pain, change in bowel habits, melena, nausea, vomiting Genitourinary: Absent: dysuria Musculoskeletal: Present: muscle weakness Integumentary: Absent: erythema, sores, wounds Neurological: Absent: focal weakness, frequent falls Hematologic/Lymphatic: Present: as per HPI Oncology - Exam - Constitutional Vitals: Temp Pulse Resp BP Pulse Ox 97.9 F 75 17 130/79 98 04/30/18 15:17 04/30/18 15:17 04/30/18 15:17 04/30/18 15:17 04/30/18 15:17 General appearance: cooperative, no acute distress, no febrile - Head Head exam: Present: atraumatic - ENT ENT exam: Present: mucous membranes moist - Respiratory Respiratory exam: Present: CTAB. Absent: respiratory distress - Cardiovascular Cardiovascular exam: Present: RRR, +S1, +S2 - GI/Abdominal GI/Abdominal exam: Present: normal bowel sounds, soft. Absent: guarding, rebound, tenderness Additional comments: colostomy - Extremities Exam Additional comments: BLE edema mainly to bilateral calves - Neurological Exam Neurological exam: Present: alert, oriented X3, no focal deficits, strengths equal and symetr throughout - Psychiatric Psychiatric exam: Present: normal affect, normal mood - Skin Skin exam: Present: dry, intact, normal color, warm Consult Discharge Plan - Plan Referrals: Jose Larson MD [Primary Care Provider] - <Sue Ellis - Last Filed: 05/01/18 10:20> Date of Encounter: 05/01/18 - Data of Consult Requesting Physician: Josefina Jackson MD Primary Care Provider: Jose Larson MD - Consult Narrative History of present illness: Ms. Saavedra is a 62 year old female Oncology - Exam - Constitutional Vitals: Temp Pulse Resp BP Pulse Ox 98.1 F 80 14 165/88 97 05/01/18 08:28 05/01/18 09:00 05/01/18 09:00 05/01/18 09:00 05/01/18 09:00 Oncology - Results Labs: 05/01/18 05/01/18 05/01/18 08:30 08:30 04:10 WBC 6.1 RBC 3.21 L Hgb 9.9 L Hct 30.4 L MCV 94.7 MCH 30.8 MCHC 32.6 RDW 16.9 H Plt Count 134 L MPV 11.0 Immature Gran % 2.6 Seg Neutrophils % 88.1 Lymphocytes % 4.8 Monocytes % 4.1 Eosinophils % 0.2 Basophils % 0.2 Neutrophils # 5.3 Lymphocytes # 0.3 L Monocytes # 0.3 Eosinophils # 0.0 Basophils # 0.0 Platelet Estimate PT INR APTT Heparin Anti-Xa, Unfract Sodium 137 Potassium 3.9 Chloride 106 Carbon Dioxide 21 L BUN 12 Creatinine 0.56 L Est GFR ( Amer) > 60 Est GFR (Non-Af Amer) > 60 BUN/Creatinine Ratio 21 Glucose 143 H POC Glucose 126 H Calculated Osmolality 286 Calcium 8.8 04/30/18 04/30/18 04/30/18 16:38 10:03 00:25 WBC RBC Hgb Hct MCV MCH MCHC RDW Plt Count MPV Immature Gran % Seg Neutrophils % Lymphocytes % Monocytes % Eosinophils % Basophils % Neutrophils # Lymphocytes # Monocytes # Eosinophils # Basophils # Platelet Estimate PT INR APTT Heparin Anti-Xa, Unfract 0.70 0.69 1.13 H* Sodium Potassium Chloride Carbon Dioxide BUN Creatinine Est GFR ( Amer) Est GFR (Non-Af Amer) BUN/Creatinine Ratio Glucose POC Glucose Calculated Osmolality Calcium 04/30/18 04/30/18 04/29/18 00:25 00:25 16:52 WBC 4.8 RBC 3.07 L Hgb 9.4 L D Hct 28.6 L MCV 93.2 MCH 30.6 MCHC 32.9 RDW 17.0 H Plt Count 142 MPV 11.4 Immature Gran % 1.0 Seg Neutrophils % 88.6 Lymphocytes % 6.4 Monocytes % 4.0 Eosinophils % 0.0 Basophils % 0.0 Neutrophils # 4.3 Lymphocytes # 0.3 L Monocytes # 0.2 Eosinophils # 0.0 Basophils # 0.0 Platelet Estimate PT INR APTT Heparin Anti-Xa, Unfract Sodium 133 L 135 L Potassium 3.9 3.6 Chloride 104 102 Carbon Dioxide 21 L 23 BUN 9 7 L Creatinine 0.58 L 0.60 Est GFR ( Amer) > 60 > 60 Est GFR (Non-Af Amer) > 60 > 60 BUN/Creatinine Ratio 16 12 Glucose 192 H 162 H POC Glucose Calculated Osmolality 280 282 Calcium 9.2 9.5 04/29/18 04/29/18 16:52 16:52 WBC 5.5 RBC 3.53 L Hgb 11.0 L Hct 33.0 L MCV 93.5 MCH 31.2 MCHC 33.3 RDW 17.0 H Plt Count 147 MPV 11.2 Immature Gran % 0.7 Seg Neutrophils % 92.9 Lymphocytes % 4.7 Monocytes % 1.1 Eosinophils % 0.2 Basophils % 0.4 Neutrophils # 5.1 Lymphocytes # 0.3 L Monocytes # 0.1 Eosinophils # 0.0 Basophils # 0.0 Platelet Estimate Normal PT 12.1 INR 1.1 APTT 31.7 Heparin Anti-Xa, Unfract 0.03 L Sodium Potassium Chloride Carbon Dioxide BUN Creatinine Est GFR ( Amer) Est GFR (Non-Af Amer) BUN/Creatinine Ratio Glucose POC Glucose Calculated Osmolality Calcium - Attending Attestation I examined this patient and my medical decision-making was reviewed with the Advanced Practice Nurse, Andressa Box. I agree with the documented findings, disposition and treatment plan as described except to the extent set forth below. Inpatient Charges Provider: Dr. Belinda Ellis Consult - Inpatient: [id number]
[2018-04-30] MEDS: Heparin 25,000 UNIT/500 ML D5W 25,000 UNIT/500 ML BAG IVC SCH (16:34)
[2018-05-01] MEDS ORDERED: methylPREDNISolone 125 MG/2 ML VIAL ONE (04:14)
[2018-05-01] MEDS ORDERED: *HR* LORazepam 2 MG/ML VIAL ONE (04:14)
[2018-05-01] MEDS ORDERED: Famotidine 20 MG/2 ML VIAL IVP ONE (04:18)
--- NOTE | 2018-05-01 04:49 | Event Note ---
Date of Encounter: 05/01/18 Time of Encounter: 04:42 I responded to a Rapid Response on this patient for acute respiratory distress. Upon arrival to her room, I noticed patient having severe respiratory distress, stridor, anxiety, and soft tissue swelling (mostly in her eyelids, somewhat in her lips, and her uvula). I was concerned she was having anaphylactic reaction (possibly her chemotherapy infusion). I ordered Benadryl 50 mg IV, Pepcid 20mg IV, Soulmedrol 125 mg IV, and Ativan 1 mg IV for anxiety. She responded quickly to the above meds. We were about to administer Epinephrine IV, but she improved quickly to the above. Her stridor has resolved, wheezing has cleared, and her soft tissue swelling has improved immensely. We stopped and removed her chemotherapy infusion. Epinephrine has not been given yet. Due to the anaphylactic reaction above, we will move her to ICU for closer monitoring and care. We will schedule her on Benadryl and Pepcid as well as Solumedrol. I will ask day team to consult allergy and HEM/ONC before resuming her chemotherapy.
[2018-05-01] MEDS ORDERED: *HR* EPINEPHrine 0.3 MG/0.3 ML (PEN) IM PRN ×2 (05:02→14:45)
[2018-05-01] MEDS: Heparin 25,000 UNIT/500 ML D5W 25,000 UNIT/500 ML BAG IVC SCH (08:04)
[2018-05-01 08:46] LABS: Basophils % 0.2 %; Eosinophils % 0.2 %; Hematocrit 30.4 % (35.3-44.9); Hemoglobin 9.9 g/dL (11.5-15.4); Immature Granulocytes % 2.6 % (0-4); Lymphocytes # 0.3 K/mcL (0.6-4.6); Lymphocytes % 4.8 %; Mean Corpuscular HGB Conc 32.6 g/dL (31.6-35.5); Mean Corpuscular Hemoglobin 30.8 pg (28.0-33.3); Mean Corpuscular Volume 94.7 fL (83.0-100.0); Monocytes # 0.3 K/mcL (0.0-1.3); Monocytes % 4.1 %; Neutrophils # 5.3 K/mcL (1.6-8.9); Platelet Count 134 K/mcL (140-400); Red Blood Count 3.21 M/mcL (3.82-4.97); Red Cell Distribution Width 16.9 % (11.5-14.5); Segmented Neutrophils % 88.1 %
[2018-05-01] MEDS ORDERED: Famotidine 20 MG/2 ML VIAL IVP SCH (09:00)
[2018-05-01] MEDS ORDERED: methylPREDNISolone 125 MG/2 ML VIAL IVP SCH (09:00)
[2018-05-01 09:07] LABS: BUN/Creatinine Ratio 21 (6-26); Blood Urea Nitrogen 12 mg/dL (8-23); Calcium 8.8 mg/dL (8.6-10.3); Carbon Dioxide 21 mEq/L (23-29); Chloride 106 mEq/L (98-107); Glucose 143 mg/dL (70-105); Osmolality,Calculated 286 (280-300); Potassium 3.9 mEq/L (3.5-5.1); Sodium 137 mEq/L (136-145); eGFR For Non-African Americans > 60 (> 60)
--- NOTE | 2018-05-01 14:02 | Event Note ---
Date of Encounter: 05/01/18 Time of Encounter: 10:30 Patient transferred to ICU earlier this morning after she developed angioedema while receiving 5-FU. Patient was also started on lisinopril yesterday and hydralazine. Patient was started on Solu-Medrol, S1 and S2 blockers. Symptoms have improved now. Patient does have some shortness of breath. Denies any chest pain or palpitations. On exam: Patient is awake and alert. Heart sounds are normal. Mild wheezing audible. Abdomen is soft, nontender. No pedal edema. Angioedema: Multiple possible causes. Patient was started on lisinopril which has known adverse effect of causing angioedema. Will stop this medication. Her symptoms started while she was receiving 5-FU. This medication is also been held. We will continue steroids, H2 blockers. Recommend follow-up with textiles and clothing teacher as outpatient. DVT in bilateral lower limbs: On anticoagulation with heparin. Plan to place place patient on Coumadin and bridging with Lovenox. Metastatic rectal cancer: Hematology/oncology consulted. Patient's chemotherapy regimen with 5-FU was held prior to completion due to development of angioedema. Moderate risk for complications.
--- NOTE | 2018-05-01 14:10 | Internal Med Progress Note ---
<Juma Gongora - Last Filed: 05/01/18 16:58> Hospitalist Progress Note - Encounter Date of Encounter: 05/01/18 Time of Encounter: 14:06 - Subjective Interval History: Pt seen and examined today resting comfortably at bedside in no acute distress. Overnight, rapid response was called for patient due to acute respiratory distre ss. Pt states she got up to go the bathroom at 4am, and started struggling to breath. Associated with rash, swelling around the eyes and face, anxiety. Pt was examined and started on benadryl, pepcid, solumedrol, and ativan which resulted in resolution of symptoms. Pt was able to return back to baseline following that event. 5-fluorouracil med was held, pending follow up with hematology-oncology. Currently Notes mild abdominal pain that she normally feels when taking chemotherapy. Pt currently denies headache, blurry vision, throat pain, swelling of eyes or face, chest pain, SOB, nausea, vomiting, diarrhea. Vital signs stable. - Exam Vitals: Temp Pulse Resp BP Pulse Ox 97.9 F 87 16 153/81 100 05/01/18 13:00 05/01/18 13:00 05/01/18 13:00 05/01/18 13:00 05/01/18 13:00 Exam: GEN: AOx3, NAD; Pleasant, talkative, no acute distress HEENT: Atraumatic, Normocephalic, mild facial swelling, EOMI, full ROM, no lymphadenopathy CARDIO: RRR, No murmurs, rubs, gallops RESP: CTAB, no wheezes, rales, rhonchi ABD: Soft, non-tender, non-distended NEURO: CN 2-12 intact, No focal neurologic deficts EXT: No pitting edema SKIN: Erythematous rash across anterior chest - Assessment and Plan (1) DVT, bilateral lower limbs Current Visit: Yes Status: Acute Assessment and Plan: Presented from Oncologist office with positive bilateral popliteal DVTs; had been having bilateral calf pain for multiple weeks CTA Chest: negative for PE PLAN: D/C Heparin Drip Begin lovenox and start coumadin (2) Anaphylaxis Current Visit: Yes Status: Resolved Assessment and Plan: Episode of anaphylaxis this morning - SOB, rash, angioedema Tx with benadryl, solumedrol, pepcid, ativan No symptoms currently Vitals stable PLAN: Cont benadryl, solumedrol, pepcid D/C Lisinopril - possibly lead to angioedema due to known adverse effect Transfer from ICU back to med-surg unit F/U with body work auto trimmer outpatient (3) Hypertension Current Visit: No Status: Chronic Assessment and Plan: BP currently 151/87 D/Cd Lisinopril PLAN: Begin Carvedilol 6.25mg BID Monitor vitals (4) Rectal cancer Current Visit: No Status: Acute Assessment and Plan: Stage III rectal cancer Due to anaphylactic rxn - will stop 5-FU for now per oncology recommendation PLAN: F/U outpatient oncology (5) Metastatic disease Current Visit: No Status: Acute Assessment and Plan: As above (6) Sphenoid mass, left Current Visit: Yes Status: Acute Assessment and Plan: as above (7) Orbital mass Current Visit: Yes Status: Acute Assessment and Plan: As above DVT Prophylaxis: Currently on lovenox and starting coumadin - Time Spent with Patient Total time spent is greater than 50% in coordination of care (as documented) at patient's floor/unit and/or counseling patient: less than 15 minutes Plan of Care Discussed with: patient Internal Medicine: Result - Labs CBC & Chem 7: 05/01/18 08:30 05/01/18 08:30 Labs: Short CBC 05/01/18 Range/Units 08:30 WBC 6.1 (4.3-11.1) K/mcL Hgb 9.9 L (11.5-15.4) g/dL Hct 30.4 L (35.3-44.9) % Plt Count 134 L (140-400) K/mcL Neutrophils # 5.3 (1.6-8.9) K/mcL BMP 05/01/18 08:30 Sodium 137 Potassium 3.9 Chloride 106 Carbon Dioxide 21 L BUN 12 Creatinine 0.56 L Glucose 143 H Calcium 8.8 - ABG Interpretation ABG results: PT/INR, D-dimer PT 12.1 Seconds (9.4-12.1) 04/29/18 16:52 Consult Discharge Plan - Plan Referrals: Jose Larson MD [Primary Care Provider] - <Josefina Jackson - Last Filed: 05/01/18 17:24> Hospitalist Progress Note - Encounter Date of Encounter: 05/01/18 Time of Encounter: 10:30 - Exam Vitals: Temp Pulse Resp BP Pulse Ox 98.2 F 89 16 151/87 100 05/01/18 15:49 05/01/18 15:49 05/01/18 15:49 05/01/18 15:49 05/01/18 15:49 - Assessment and Plan (1) Hypertension Current Visit: No Status: Chronic (2) Rectal cancer Current Visit: No Status: Acute (3) Metastatic disease Current Visit: No Status: Acute (4) DVT, bilateral lower limbs Current Visit: Yes Status: Acute (5) Sphenoid mass, left Current Visit: Yes Status: Acute (6) Orbital mass Current Visit: Yes Status: Acute - Time Spent with Patient Total time spent is greater than 50% in coordination of care (as documented) at patient's floor/unit and/or counseling patient: Internal Medicine: Result - Labs CBC & Chem 7: 05/01/18 08:30 05/01/18 08:30 Labs: Short CBC 05/01/18 Range/Units 08:30 WBC 6.1 (4.3-11.1) K/mcL Hgb 9.9 L (11.5-15.4) g/dL Hct 30.4 L (35.3-44.9) % Plt Count 134 L (140-400) K/mcL Neutrophils # 5.3 (1.6-8.9) K/mcL BMP 05/01/18 08:30 Sodium 137 Potassium 3.9 Chloride 106 Carbon Dioxide 21 L BUN 12 Creatinine 0.56 L Glucose 143 H Calcium 8.8 - ABG Interpretation ABG results: PT/INR, D-dimer PT 12.1 Seconds (9.4-12.1) 04/29/18 16:52 - Attending Attestation I saw evaluated and examined this patient and my medical decision-making was reviewed with the Resident Physician, Juma Gongora. I agree with the documented findings, disposition and treatment plan as described except to any changes set forth below. We independently had [id number] contact with the patient. Patient transferred to ICU earlier this morning after she developed angioedema while receiving 5-FU. Patient was also started on lisinopril yesterday and hy dralazine. Patient was started on Solu-Medrol, S1 and S2 blockers. Symptoms have improved now. Patient does have some shortness of breath. Denies any chest pain or palpitations. On exam: Patient is awake and alert. Heart sounds are normal. Mild wheezing audible. Abdomen is soft, nontender. No pedal edema. Angioedema: Multiple possible causes. Patient was started on lisinopril which has known adverse effect of causing angioedema. Will stop this medication. Her symptoms started while she was receiving 5-FU. This medication is also been held. We will continue steroids, H2 blockers. Recommend follow-up with body work auto trimmer as outpatient. DVT in bilateral lower limbs: On anticoagulation with heparin. Plan to place place patient on Coumadin and bridging with Lovenox. Metastatic rectal cancer: Hematology/oncology consulted. Patient's chemotherapy regimen with 5-FU was held prior to completion due to development of angioedema. Moderate risk for complications. ____ <Juma Gongora - Last Filed: 05/01/18 16:58> (1) DVT, bilateral lower limbs Qualifiers: Affected thrombotic vein of extremity: popliteal Chronicity: acute Qualified Code(s): I82.433 - Acute embolism and thrombosis of popliteal vein, bilateral (3) Hypertension Qualifiers: Hypertension type: essential hypertension Qualified Code(s): I10 - Essential (primary) hypertension <Josefina Jackson - Last Filed: 05/01/18 17:24> (1) Hypertension Qualifiers: Hypertension type: essential hypertension Qualified Code(s): I10 - Essential (primary) hypertension (4) DVT, bilateral lower limbs Qualifiers: Affected thrombotic vein of extremity: popliteal Chronicity: acute Qualified Code(s): I82.433 - Acute embolism and thrombosis of popliteal vein, bilateral
[2018-05-01] MEDS ORDERED: Magic Mouthwash 10 ML UD Cup PO PRN (14:45)
[2018-05-01] MEDS ORDERED: Naloxone 0.4 MG/ML INJ IVP PRN (14:45)
[2018-05-01] MEDS ORDERED: Ondansetron ODT 4 MG TAB.RAPDIS PO PRN (14:45)
[2018-05-01] MEDS ORDERED: Ibuprofen 800 MG TABLET PO PRN (14:45)
[2018-05-01] MEDS: *HR* Enoxaparin 100 MG/ML SYRINGE SQ SCH (17:06)
[2018-05-01] MEDS: methylPREDNISolone 125 MG/2 ML VIAL IVP SCH (17:07)
[2018-05-01] MEDS ORDERED: *HR* Enoxaparin 100 MG/ML SYRINGE SQ SCH (18:00)
[2018-05-01] MEDS ORDERED: Warfarin perPT PO PRN ×2 (18:00)
[2018-05-01] MEDS ORDERED: *HR* Warfarin 5 MG TABLET PO ONE ×2 (18:00)
--- NOTE | 2018-05-01 20:49 | Oncology Inp Progress Note ---
Date of Encounter: 05/01/18 Time of Encounter: 17:00 (1) Rectal cancer Current Visit: No Status: Acute Assessment and plan: On FOLFOX avastin C5 recently completed, 5FU d/haven early--patient developed angioedema symptoms likely due to lisinopril. Lisinopril discontinued per medical team. DVT lower ext briding with coumadin, s/p dose today. She will f/u outpatient for further chemotherapy as scheduled. Titrate antihypertensives Plan d.w pt and fmly Oncology: Subj Interval history: Overnight events noted. Patient is feeling well currently, examined in the ICU - Constitutional Vitals: Vital Signs Temp Pulse Resp BP Pulse Ox 05/01/18 20:20 98.3 F 77 18 134/73 97 05/01/18 18:41 97.8 F 05/01/18 15:49 98.2 F 89 16 151/87 100 05/01/18 14:00 90 16 157/87 100 05/01/18 13:00 97.9 F 87 16 153/81 100 05/01/18 12:00 82 16 138/75 100 05/01/18 11:00 84 16 143/79 100 05/01/18 10:00 90 14 165/88 100 05/01/18 09:00 80 14 165/88 97 05/01/18 08:28 98.1 F 05/01/18 08:00 80 14 167/94 97 05/01/18 07:00 70 14 171/85 97 05/01/18 05:23 97.8 F 119 20 165/89 98 05/01/18 04:20 98.2 F 79 17 169/86 98 05/01/18 04:17 97.6 F 97 24 130/103 99 05/01/18 04:10 97.6 F 118 22 169/84 99 05/01/18 04:05 97.6 F 118 22 169/84 99 05/01/18 00:53 162/88 04/30/18 23:52 97.9 F 66 15 163/82 96 Intake and Output 05/01/18 05/01/18 05/01/18 07:59 15:59 23:59 Intake Total 635 / 635 500 / 500 Output Total 250 / 250 500 / 500 0 / 0 Balance -250 / -250 135 / 135 500 / 500 Intake: IV Fluids 275 / 275 Heparin 25,000 UNIT/500 ML D5W 275 / 275 25,000 unit In 500 ml @ 14 UNIT /KG/HR 26.214 mls/hr IVC . Q19H5M JULIETTE Rx#:[id number] Oral 360 / 360 500 / 500 Output: Urine 250 / 250 500 / 500 0 / 0 Other: Meal Lunch Percent of Meal Consumed 100% Weight 95.2 kg Blood Glucose* 126 Patient Weight 05/01/18 23:59 Weight 95.2 kg General appearance: no acute distress - Head Head exam: Present: atraumatic, normal inspection - Eye Eye exam: Present: sclera anicteric - ENT ENT exam: Present: mucous membranes moist - Neck Neck exam: Present: full ROM - Respiratory Respiratory exam: Present: CTAB - Cardiovascular Cardiovascular exam: Present: +S1, +S2 - Extremities Exam Extremities exam: Present: pedal edema - Neurological Exam Neurological exam: Present: alert, oriented X3, no focal deficits Oncology: Obj Data - Labs CBC & Chem 7: 05/01/18 08:30 05/01/18 08:30 Labs: Laboratory Results - last 24 hr 05/01/18 05/01/18 05/01/18 04:10 08:30 08:30 WBC 6.1 RBC 3.21 L Hgb 9.9 L Hct 30.4 L MCV 94.7 MCH 30.8 MCHC 32.6 RDW 16.9 H Plt Count 134 L MPV 11.0 Immature Gran % 2.6 Seg Neutrophils % 88.1 Lymphocytes % 4.8 Monocytes % 4.1 Eosinophils % 0.2 Basophils % 0.2 Neutrophils # 5.3 Lymphocytes # 0.3 L Monocytes # 0.3 Eosinophils # 0.0 Basophils # 0.0 Sodium 137 Potassium 3.9 Chloride 106 Carbon Dioxide 21 L BUN 12 Creatinine 0.56 L Est GFR ( Amer) > 60 Est GFR (Non-Af Amer) > 60 BUN/Creatinine Ratio 21 Glucose 143 H POC Glucose 126 H Calculated Osmolality 286 Calcium 8.8 - ABG Interpretation ABG results: PT/INR, D-dimer PT 12.1 Seconds (9.4-12.1) 04/29/18 16:52 Consult Discharge Plan - Plan Referrals: Jose Larson MD [Primary Care Provider] - Inpatient Charges Provider: Dr. Belinda Ellis Follow up - Inpatient: [id number]
[2018-05-01] MEDS: Famotidine 20 MG/2 ML VIAL IVP SCH (21:15)
[2018-05-02] MEDS: methylPREDNISolone 125 MG/2 ML VIAL IVP SCH ×3 (00:13→12:34)
[2018-05-02 04:53] LABS: Prothrombin Time 11.2 Seconds (9.4-12.1)
[2018-05-02] MEDS: *HR* Enoxaparin 100 MG/ML SYRINGE SQ SCH (06:16)
--- NOTE | 2018-05-02 08:12 | Discharge Summary ---
<Juma Gongora - Last Filed: 05/02/18 12:31> - NOTES TO OUTPATIENT PROVIDER Notes to Outpatient Provider: Follow up INR - bridging from lovenox to coumadin Orders not resulted at time of discharge: Pending orders 05/03/18 04:00 INR/PT [Prothrombin Time INR] [COAG] AM 0400 05/04/18 04:00 INR/PT [Prothrombin Time INR] [COAG] AM 0400 05/05/18 04:00 INR/PT [Prothrombin Time INR] [COAG] AM 0400 05/06/18 04:00 INR/PT [Prothrombin Time INR] [COAG] AM 0400 Date of Encounter: 05/02/18 Time of Encounter: 08:12 - Discharge Diagnosis (1) DVT, bilateral lower limbs Priority: Primary Status: Acute Qualifiers: Affected thrombotic vein of extremity: popliteal Chronicity: acute Qualified Code(s): I82.433 - Acute embolism and thrombosis of popliteal vein, bilateral (2) Anaphylaxis Priority: Secondary Status: Resolved Qualifiers: Encounter type: initial encounter Qualified Code(s): T78.2XXA - Anaphylactic shock, unspecified, initial encounter (3) Hypertension Priority: Secondary Status: Chronic Qualifiers: Hypertension type: essential hypertension Qualified Code(s): I10 - Essential (primary) hypertension (4) Rectal cancer Priority: Secondary Status: Acute (5) Metastatic disease Priority: Secondary Status: Acute (6) Sphenoid mass, left Priority: Secondary Status: Acute (7) Orbital mass Priority: Secondary Status: Acute Hospital course: Ms. 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 Pt was noted to have extensive dvts in b/l lower extremities after venous doppler. Associated with bilateral lower extremity pain and fatigue, but denied chest pain, SOB, night sweats, focal neurologic deficits or swelling. Admitted to hospital for further monitoring, and plan to start on heparin gtt. In the ED, vital signs were stable. CT Chest was negative for PE. Pt was monitored closely on telemetry. Oncology was consulted during hospital visit and advised to cont current treatment of stage III rectal carcinoma. Due to elevated blood pressures, pt was started on radha inhibitor and IV Hydralazine as needed. Overnight on hospital day #2, patient woke up from sleep with SOB, rash, swelling of face. Rapid response was called and pt given benadryl, solumedrol, pepcid, and ativan. Symptoms resolved after medications. Pt found to have anaphylactic reaction most likely to lisinopril. Medication was stopped. ADditionally, transfusion of 5-FU for tx of rectal carcinoma was stopped at that time per recommedation from oncologist pending outpatient follow up. Pt was monitored following anaphylactic event and was stable. Blood pressure medication switched to carvedilol, and switched to lovenox and coumadin. Plan to use lovenox to bridge until coumadin is therapeutic. Symptoms have currently resolved. Pt denies SOB, chest pain, lightheadedness, rash, abdominal pain, nausea, vomiting, diarrhea. Plan to discharge home with lovenox and coumadin, and cont prednisone for 3 more days. Discharge discussed with: patient - Time Spent with Patient Total time spent providing and/or coordinating discharge services: Less than 30 minutes - Discharge Medications Prescriptions: DiphenhydraMINE [Benadryl] 25 mg PO Q6HR 7 Days #30 capsule Enoxaparin [Lovenox] 100 mg SQ Q12HR 7 Days #14 syringe Carvedilol [Coreg] 6.25 mg PO BIDWM 30 Days #60 tablet EPINEPHrine [Epipen] 0.3 mg IM ONCE PRN #1 kit PRN Reason: Allergic Reaction PredniSONE [Deltasone] 20 mg PO QDPC 3 Days #6 tablet Warfarin [Coumadin] 5 mg PO 1800 30 Days #30 tablet Home Medications: Ondansetron HCl [Zofran] 4 mg PO Q4H PRN #30 tablet 08/20/17 [Rx] Prochlorperazine Maleate [Compazine] 10 mg PO Q6H PRN #30 tablet 08/20/17 [Rx] Lidocaine/Prilocaine [Emla] 1 appl TP AD #30 gm 08/23/17 [Rx] Loperamide [Imodium] 2 mg PO AD PRN #30 capsule 08/23/17 [Rx] Magic Mouthwash 5 ml PO Q4H PRN #240 ml 08/23/17 [Rx] Ibuprofen 800 mg PO Q8H PRN #30 tablet 02/12/18 [Rx] Omeprazole 20 mg PO DAILY #30 tablet. 02/12/18 [Rx] Dicyclomine [Bentyl] 20 mg PO QID PRN 04/15/18 [History] Carvedilol [Coreg] 6.25 mg PO BIDWM 30 Days #60 tablet 05/02/18 [Rx] DiphenhydraMINE [Benadryl] 25 mg PO Q6HR 7 Days #30 capsule 05/02/18 [Rx] EPINEPHrine [Epipen] 0.3 mg IM ONCE PRN #1 kit 05/02/18 [Rx] Enoxaparin [Lovenox] 100 mg SQ Q12HR 7 Days #14 syringe 05/02/18 [Rx] PredniSONE [Deltasone] 20 mg PO QDPC 3 Days #6 tablet 05/02/18 [Rx] Warfarin [Coumadin] 5 mg PO 1800 30 Days #30 tablet 05/02/18 [Rx] Allergies/Adverse Reactions: Allergy/AdvReac Type Severity Reaction Status Date / Time lisinopril Allergy Anaphylaxis Verified 05/01/18 20:25 codeine AdvReac Chest Pain Verified 04/29/18 09:21 Date of admission: 04/29/18 17:28 Primary care physician: Jose Larson MD Consults: 04/29/18 18:03 Consult to Oncology [CONS] Stat Consulting Provider: [facility] Reason for Consult: Bilateral lower extremity popliteal vein thrombus in the setting of metastatic colorectal cancer Time Notified: 18:04 Call Completed: Yes Discharging clinician: Juma Gongora Anticipated date of discharge: 05/02/18 - Constitutional Vitals: Temp Pulse Resp BP Pulse Ox 98.0 F 76 16 151/78 97 05/02/18 07:18 05/02/18 07:18 05/02/18 07:18 05/02/18 07:18 05/02/18 07:18 General appearance: Present: A&O X 3 Exam: GEN: AOx3; NAD; resting comfortably in bed HEENT: Atraumatic, normocephalic, EOMI, Full ROM, no lymphadenopathy CARDIO: RRR, no murmurs, rubs, gallups RESP: CTAB, no wheezes, rales, rhonchi ABD: Soft, non-tender, non-distended NEURO: CN 2-12 intact; no focal neurologic deficits EXT: No lower extremity swelling SKIN: Anterior chest rash improved from yesterday - Patient Status Disposition: Home, Self-Care Condition: Fair Functional capacity at discharge: independent ambulation Overall status at discharge: patient is progressing back to baseline - Discharge Instructions Instructions: Prednisone (By mouth), Warfarin (By mouth), Diphenhydramine (By mouth), Enoxaparin (Injection), Carvedilol (By mouth), How to Give a Subcutaneous Injection (DC), How to Give a Subcutaneous Injection (GEN) Follow Up With: Jose Larson MD [Primary Care Provider] - 05/09/18 9:45 am ( ) Additional Instructions: You have an appointment scheduled at the coumadin clinic 05/05/18 at 9:30. - Diet and Activity Activity: increase activity as tolerated Diet: advance to your usual diet <Josefina Jackson - Last Filed: 05/02/18 13:14> - NOTES TO OUTPATIENT PROVIDER Notes to Outpatient Provider: Patient hospitalized with bilateral DVTs in the lower extremities. She was started on IV heparin but developed episode of a ngioedema while she was also receiving 5 for a few. As such and patient transferred to ICU for monitoring. She received epinephrine, Solu-Medrol and antihistamines improvement in her symptoms. She has now been transitioned to Lovenox and Coumadin for anticoagulation. She is stable to be discharged home. She had also been started on lisinopril here which could also contribute it to visit her episode of angioedema. This medication has also been stopped and article allergy list. She has been placed on carvedilol instead for hypertension with improvement in her blood pressure. Orders not resulted at time of discharge: Pending orders 05/03/18 04:00 INR/PT [Prothrombin Time INR] [COAG] AM 0400 05/04/18 04:00 INR/PT [Prothrombin Time INR] [COAG] AM 0400 05/05/18 04:00 INR/PT [Prothrombin Time INR] [COAG] AM 0400 05/06/18 04:00 INR/PT [Prothrombin Time INR] [COAG] AM 0400 Date of Encounter: 05/02/18 Time of Encounter: 09:30 - Discharge Diagnosis (1) Hypertension Status: Chronic Qualifiers: Hypertension type: essential hypertension Qualified Code(s): I10 - Essential (primary) hypertension (2) Rectal cancer Status: Acute (3) Metastatic disease Status: Acute (4) DVT, bilateral lower limbs Status: Acute Qualifiers: Affected thrombotic vein of extremity: popliteal Chronicity: acute Qualified Code(s): I82.433 - Acute embolism and thrombosis of popliteal vein, bilateral (5) Sphenoid mass, left Status: Acute (6) Orbital mass Status: Acute Hospital course: Ms. Saavedra is a 62 year old female - Time Spent with Patient Total time spent providing and/or coordinating discharge services: Date of admission: 04/29/18 17:28 Primary care physician: Jose Larson MD Consults: 04/29/18 18:03 Consult to Oncology [CONS] Stat Consulting Provider: [facility] Reason for Consult: Bilateral lower extremity popliteal vein thrombus in the setting of metastatic colorectal cancer Time Notified: 18:04 Call Completed: Yes - Constitutional Vitals: Temp Pulse Resp BP Pulse Ox 98.1 F 77 16 142/81 98 05/02/18 11:50 05/02/18 11:50 05/02/18 11:50 05/02/18 11:50 05/02/18 11:50 General appearance: Present: cooperative, A&O X 3, answers questions appropriately - Head Head exam: Present: atraumatic, normocephalic - Respiratory Respiratory exam: Present: CTAB. Absent: accessory muscle use, rales, rhonchi, wheezes - Cardiovascular Cardiovascular exam: Present: RRR, +S1, +S2. Absent: diastolic murmur, gallop, rubs, systolic murmur - Attending Attestation I saw evaluated and examined this patient and my medical decision-making was reviewed with the Resident Physician, Juma Gongora. I agree with the documented findings, disposition and treatment plan as described except to any changes set forth below. We independently had [id number] contact with the patient. Addendum entered and electronically signed by Josefina Jackson MD 05/02/18 15:56: Total time spent providing and/or coordinating discharge services: 15 min
[2018-05-02] MEDS: Famotidine 20 MG/2 ML VIAL IVP SCH (09:18)
[2018-05-02 09:55] LABS: Hematocrit 28.3 % (35.3-44.9); Hemoglobin 9.4 g/dL (11.5-15.4); Mean Corpuscular HGB Conc 33.2 g/dL (31.6-35.5); Mean Corpuscular Hemoglobin 31.1 pg (28.0-33.3); Mean Corpuscular Volume 93.7 fL (83.0-100.0); Nucleated Red Blood Cells 0.4 /100 WBC (0); Platelet Count 144 K/mcL (140-400); Red Blood Count 3.02 M/mcL (3.82-4.97); Red Cell Distribution Width 16.6 % (11.5-14.5)
[2018-05-02 10:13] LABS: BUN/Creatinine Ratio 19 (6-26); Blood Urea Nitrogen 13 mg/dL (8-23); Calcium 8.5 mg/dL (8.6-10.3); Carbon Dioxide 21 mEq/L (23-29); Chloride 104 mEq/L (98-107); Glucose 239 mg/dL (70-105); Osmolality,Calculated 288 (280-300); Potassium 3.9 mEq/L (3.5-5.1); Sodium 135 mEq/L (136-145); eGFR For Non-African Americans > 60 (> 60)
[2018-05-02 10:45] LABS: Lymphocytes # 0.5 K/mcL (0.6-4.6); Monocytes # 0.2 K/mcL (0.0-1.3); Neutrophils # 4.6 K/mcL (1.6-8.9); Platelet Estimate Normal (Normal)
[2018-05-02 11:53] VITALS: BP 142/81
[2018-05-02] MEDS ORDERED: *HR* Warfarin 5 MG TABLET PO SCH (18:00)
== END 2018-05-02 14:43 | disposition home or self-care (01) | DRG 300 ==
LOC: 3BNU 16:04 → EMEROOARM 16:04 → SUATTDRO 17:28 → OBSVTOIN 17:28 → 3BNU 18:46 → 3ANU 04-30 17:35 → ICNU 05-01 05:46 → 3BNU 05-01 20:00
PROVIDERS: ADMIT Internal Medicine; ATTEND Internal Medicine